=== PATIENT | female | born 1945 ===

== ENCOUNTER 2018-04-09 07:00 | Day surgery (SDC) | payer MEDICARE ==
[2018-04-09 07:41] VITALS: BMI 22.2
[2018-04-09] MEDS ORDERED: Propofol 10 mg/ml Inj (20 ML) ONE (08:29)
--- NOTE | 2018-04-09 08:30 | CP.SDSHP ---
Same Day Surgery H & P - Previous Medical/Surgical History Cardiac: Hypertension Misc: Other Comments: RA, SLE Previous Surgical History: cholecystectomy, appendectomy, hysterectomy - Allergies Allergies: Allergies aspirin Allergy (Intermediate, Verified 04/09/18 07:39) RASH Iodine and Iodide Containing Produc Allergy (Intermediate, Verified 04/09/18 07: 41) ITCHING SEVERE ABDOMINAL PAIN codeine Adverse Reaction (Severe, Verified 04/09/18 07:41) DIARRHEA SEVERE ABDOMINAL PAIN lactose Adverse Reaction (Severe, Verified 04/09/18 07:41) DIARRHEA SEVERE ABDOMINAL PAIN Penicillins Adverse Reaction (Severe, Verified 04/09/18 07:41) DIARRHEA SEVERE ABDOMINAL PAIN - Current Medications Current Medications: See reconciliation sheet - Physical Exam General Appearance: WD WN female in NAD Vital Signs: Vital Signs 04/09/18 07:58 Temperature 97 F L Pulse Rate 76 Respiratory 19 Rate Blood Pressure 148/88 O2 Sat by Pulse 99 Oximetry Mental Status: Alert & Oriented x3 Neuro: WNL Heart: WNL Lungs: WNL GI: WNL - {Optional Preform as Required} Abdomen: WNL - Impression Impression: Epigastric pain Pt. Evaluated Today:Candidate for Anesthesia & Procedure: Yes - Date & Time Date: 04/09/18 Time: 08:30 Short Stay Discharge - Short Stay Discharge Admitting Diagnosis/Reason for Visit: EPIGASTRIC PAIN Disposition: HOME/ ROUTINE Referrals: Jh Woodson Jr., MD [Primary Care Provider] -
[2018-04-09 10:20] VITALS: BP 146/79; PULSE 72; RESP 17; TEMP 97.1; O2SAT 99
== END 2018-04-09 10:00 | disposition home or self-care (01) ==
LOC: C.ENDO 07:00
PROVIDERS: ATTEND Internal Medicine Gastroenterology
DX: I10 Essential (primary) hypertension (principal); Z88.0 Allergy status to penicillin; Z90.49 Acquired absence of other specified parts of digestive tract; K29.50 Unspecified chronic gastritis without bleeding; K44.9 Diaphragmatic hernia without obstruction or gangrene
CPT/HCPCS: 43239; 88305; 88312; 88313; 88342; J2001; J2704

== ENCOUNTER 2018-06-15 21:06 | Emergency (ER) | payer MEDICARE ==
[2018-06-15 21:07] VITALS: BMI 22.2
[2018-06-15 21:26] VITALS: RESP 14; TEMP 98.1; O2SAT 100
[2018-06-15 21:42] LABS: BASO % 0.5 % (0.0-2.0); EOS # 0.1 K/uL (0.0-0.7); EOS % 2.4 % (0.0-4.0); LYMPH # 1.5 K/uL (1.0-4.3); LYMPH % 30.3 % (20.0-40.0); MEAN CORPUSCULAR HEMOGLOBIN 31.5 pg (27.0-31.0); MEAN CORPUSCULAR HGB CONC 33.9 g/dL (33.0-37.0); MEAN PLATELET VOLUME 9.3 fL (7.2-11.7); MONO # 0.5 K/uL (0.0-0.8); MONO % 10.7 % (0.0-10.0); NEUT # 2.9 K/uL (1.8-7.0); NEUT % 56.1 % (50.0-75.0); RBC 3.79 Mil/uL (3.80-5.20)
[2018-06-15 21:46] LABS: WHITE BLOOD COUNT 5.1 K/uL (4.8-10.8)
[2018-06-15 22:13] LABS: ALB/GLOB RATIO 1.5 (1.0-2.1); ALBUMIN 4.4 g/dL (3.5-5.0); ALT/SGPT 33 U/L (9-52); AST/SGOT 56 U/L (14-36); BLOOD UREA NITROGEN 17 mg/dL (7-17); CALCIUM 9.5 mg/dl (8.6-10.4); GFR NON-AFRICAN AMERICAN > 60
--- NOTE | 2018-06-15 22:39 | C.PDOC ---
History Of Present Illness 72 y/o F c PMHx HTN on 4 blood pressure medications p/w hypertension. Patient noticed blood pressure reading at home was higher than normal starting 2 nights ago at about 180s/70s. Patient was also having anxiety at that time. Currently, she continues to have high blood pressure but denies dyspnea, chest pain, urinary changes, or significant headache. Patient had some chest discomfort 2 days ago. Time Seen by Provider: 06/15/18 21:16 Chief Complaint (Nursing): High Blood Pressure Past Medical History Vital Signs: Last Vital Signs Temp 98.1 F 06/15/18 21:18 Pulse 75 06/15/18 21:18 Resp 14 06/15/18 21:18 BP 182/62 H 06/15/18 21: Pulse Ox 100 06/15/18 22:40 - Medical History PMH: Arthritis, Colonic Polyps (ADENOMATOUS), Gastritis, Gall Bladder Disease, HTN, Osteoporosis, Rheumatoid Arthritis Denies: Asthma, Bronchitis, COPD, Emphysema, Fractures, Chronic Kidney Disease, Seizures, Sleep Apnea, TIA Surgical History: Appendectomy, Cholecystectomy, Endoscopy - [facility] Procedures ENDOSC POLYPECTOMY OF LG INTEST (11/18/13) Family History: States: No Known Family Hx - Social History Hx Tobacco Use: No Hx Alcohol Use: No Hx Substance Use: No - Immunization History Hx Tetanus Toxoid Vaccination: Yes Hx Influenza Vaccination: Yes Hx Pneumococcal Vaccination: Yes Review Of Systems Except As Marked, All Systems Reviewed And Found Negative. Constitutional: Negative for: Fever Respiratory: Negative for: Shortness of Breath Physical Exam - Physical Exam Additional Physical Exam Comments: Gen: NAD Head: NC/AT Eyes: No scleral icterus ENT: MMM Neck: Supple Chest: No tenderness CV: Regular rate Lungs: CTA b/l Abd: Soft, NT Back: No CVA tenderness SKin: No rash Extremities: No edema Neuro: Alert, no focal deficit ED Course And Treatment - Laboratory Results Result Diagrams: 06/15/18 21:39 06/15/18 21:39 O2 Sat by Pulse Oximetry: 100 Medical Decision Making Medical Decision Making: EKG NSR 74 bpm, no ST/T wave changes. CXR no acute disease. Creatinine normal. Troponin negative (last complaint of chest discomfort 2 days ago). Discharged home, f/u Dr. Woodson, instructed to return to ED for headache, chest pain, dyspnea, or change in urine. Disposition - Disposition Referrals: Jh Woodson Jr., MD [Medical Doctor] - Disposition: HOME/ ROUTINE Disposition Time: 22:40 Condition: STABLE Instructions: High Blood Pressure Emergencies Forms: [facility] ([place]) - Clinical Impression Clinical Impression: Hypertension
[2018-06-15 23:00] VITALS: BP 158/65; PULSE 80
--- NOTE | 2018-06-16 13:50 | RAD ---
Date of service: 06/15/2018 HISTORY: chest complaint COMPARISON: Comparison chest 05/07/2016 FINDINGS: LUNGS: No active pulmonary disease. PLEURA: No significant pleural effusion identified, no pneumothorax apparent. CARDIOVASCULAR: Normal. OSSEOUS STRUCTURES: No significant abnormalities. VISUALIZED UPPER ABDOMEN: Normal. OTHER FINDINGS: None. IMPRESSION: No active disease.
--- NOTE | 2018-06-19 22:16 | CARD ---
APPROVED REPORT Date of service: 06/15/2018 EKG Measurement Heart [id number] [id number] <Conclusion> Normal sinus rhythm Normal ECG
== END 2018-06-15 23:00 | disposition home or self-care (01) ==
LOC: C.ER 21:06
DX: I10 Essential (primary) hypertension (principal)

== ENCOUNTER 2018-11-04 10:51 | Emergency (ER) | payer MEDICARE | END 2018-11-04 13:13 | disposition home or self-care (01) | LOC: C.ER 10:51 ==

== ENCOUNTER 2018-12-23 07:39 | Outpatient (CLI) | payer MEDICARE | END 2018-12-23 07:40 | disposition home or self-care (01) | LOC: C.LAB 07:39 | DX: K44.9 Diaphragmatic hernia without obstruction or gangrene (principal); K21.9 Gastro-esophageal reflux disease without esophagitis; K57.30 Diverticulosis of large intestine without perforation or abscess without bleeding; K58.9 Irritable bowel syndrome, unspecified; Z86.010 Personal history of colon polyps ==

== ENCOUNTER 2018-12-23 07:49 | Outpatient (CLI) | payer MEDICARE | END 2018-12-23 07:50 | disposition home or self-care (01) | LOC: C.LAB 07:49 | DX: M32.10 Systemic lupus erythematosus, organ or system involvement unspecified (principal) ==

== ENCOUNTER 2019-01-25 08:00 | Outpatient (CLI) | payer MEDICARE | END 2019-01-25 08:01 | disposition home or self-care (01) | LOC: C.CTH 08:00 ==

== ENCOUNTER 2019-02-10 08:52 | Outpatient (CLI) | payer MEDICARE | END 2019-02-10 08:53 | disposition home or self-care (01) | LOC: C.LAB 08:52 | DX: E55.9 Vitamin D deficiency, unspecified (principal) ==

== ENCOUNTER 2019-02-16 08:03 | Outpatient (CLI) | payer MEDICARE | END 2019-02-16 08:04 | disposition home or self-care (01) | LOC: C.LAB 08:03 | DX: K59.00 Constipation, unspecified (principal) ==

== ENCOUNTER 2019-02-18 08:18 | Day surgery (SDC) | payer MEDICARE ==
[2019-02-18] MEDS ORDERED: Absorbable Gelatin Sponge Size 12-7 ONE (10:02)
[2019-02-18] MEDS ORDERED: Midazolam 2 MG/2 ML VIAL ONE (10:06)
--- NOTE | 2019-02-18 10:37 | CP.SDSHP ---
Same Day Surgery H & P - History Proposed Procedure: US guided liver biopsy Pre-Op Diagnosis: abnormal LFTs - Allergies Allergies: Allergies aspirin Allergy (Intermediate, Verified 11/04/18 11:12) RASH Iodine and Iodide Containing Produc Allergy (Intermediate, Verified 11/04/18 11:12) ITCHING SEVERE ABDOMINAL PAIN codeine Adverse Reaction (Severe, Verified 11/04/18 11:12) DIARRHEA SEVERE ABDOMINAL PAIN lactose Adverse Reaction (Severe, Verified 11/04/18 11:12) DIARRHEA SEVERE ABDOMINAL PAIN Penicillins Adverse Reaction (Severe, Verified 11/04/18 11:12) DIARRHEA SEVERE ABDOMINAL PAIN - Physical Exam Mental Status: Alert & Oriented x3 - Impression Impression: Pt with possible sclerosing cholangitis refered for biopsy. Plan US guided liver biopsy Pt. Evaluated Today:Candidate for Anesthesia & Procedure: Yes (ASA 3 Malampati 2) - Date & Time Date: 02/18/19 Time: 10:00 Short Stay Discharge - Short Stay Discharge Admitting Diagnosis/Reason for Visit: DX:INTRAHEPATIC CHOLESTASIS SCLEROSING CHOLANGITIS Disposition: HOME/ ROUTINE Referrals: Jh Woodson Jr., MD [Primary Care Provider] -
[2019-02-18 10:38] VITALS: BMI 24.9
--- NOTE | 2019-02-18 10:38 | PCM.SURG1 ---
Surgeon's Initial Post Op Note - Surgeon's Notes Surgeon: Lance KESSLER MD Surface To Air Weapons Officer: NONE Type of Anesthesia: IV Sedation, Moderate Sedation{RN} Pre-Operative Diagnosis: Abnormal LFTs Operative Findings: US showed an unremarkable liver Post-Operative Diagnosis: Abnormal LFTs Operation Performed: US guided liver biopsy Specimen/Specimens Removed: 18 g core x 4 Estimated Blood Loss: EBL {In ML}: 1 Blood Products Given: N/A Drains Used: No Drains Post-Op Condition: Good Date of Surgery/Procedure: 02/18/19 Time of Surgery/Procedure: 10:30
[2019-02-18] MEDS ORDERED: Lidocaine Hydrochloride 5 ML INJ ONE (11:22)
--- NOTE | 2019-02-18 12:15 | US ---
PROCEDURE: Date of procedure: 02/18/2019 Procedure: 1. Ultrasound-guided core liver biopsy, CPT 47319 2. Ultrasound guidance for biopsy, [address] Medications: The patient is sedated by the anesthesiologist. HISTORY: Abnormal LFTs TECHNIQUE: Following informed consent and procedure time-out, the patient was placed supine on bed and limited ultrasound showed a normal appearing right hepatic lobe. After patient abdomen was prepped and draped in the usual sterile fashion and the skin was anesthetized with 2% lidocaine, an 18 gauge core needle was advanced percutaneously under direct ultrasound guidance into the right hepatic lobe. Upon confirmation of needle position, three 18 gauge core specimens were obtained and sent for routine pathology. The biopsy to tract was then embolized with Gelfoam. A post biopsy ultrasound showed no hematoma. A dressing was applied. IMPRESSION: Ultrasound-guided core biopsy right hepatic lobe. There were no immediate complications.
--- NOTE | 2019-02-18 15:15 | CT ---
Date of service: 02/18/2019 PROCEDURE: CT Chest, Abdomen and Pelvis without intravenous contrast HISTORY: Post Liver Biopsy c/o severe pain epigastric COMPARISON: None available. TECHNIQUE: Radiation dose: Total exam DLP = 549.33 mGy-cm. This CT exam was performed using one or more of the following dose reduction techniques: Automated exposure control, adjustment of the mA and/or kV according to patient size, and/or use of iterative reconstruction technique. FINDINGS: CT CHEST WITHOUT CONTRAST: LUNGS: Small of round and elliptical shaped foci of multiple small discrete lucencies within the lung parenchyma bilaterally in the upper and lower lobes which could represent small pneumatoceles or emphysematous changes. No evidence of pneumothorax or effusion... There are mild linear atelectatic and/or scarring changes seen in both lung bases left greater than right. Small right-sided Bochdalek hernia present.. MEDIASTINUM: . Normal caliber aorta and pulmonary arterial trunk. Normal size heart. Aortic calcified atherosclerotic plaque present. Trachea midline and patent with no large central endoluminal lesions. There appears to be some faint debris within the esophageal lumen. Small hiatal hernia with fluid level in the distal esophagus consistent with reflux. LYMPH NODES: No significant mediastinal adenopathy. Evaluation for hilar adenopathy somewhat limited due to the lack circulating intravenous contrast material. PLEURA: No effusion. No evidence of pneumothorax BONES: Mild multilevel degenerative spondylosis of the thoracic spine OTHER FINDINGS: None. CT ABDOMEN AND PELVIS: LIVER: There is a small elliptical shaped low-attenuation focus along the lateral aspect right lobe liver which may represent Gel-Foam along of biopsy tract. Few tiny bubbles of air are also seen anterior to the liver either in a subcapsular location or just outside of the capsule-intraperitoneal location. There is ill-defined though somewhat elliptical shaped area of lower attenuation inferior aspect right lobe liver that measures approximate 5.2 x 2.6 cm which is of uncertain etiology although ranges from 37 to low 50s Hounsfield units. This could represent a subacute hematoma; is there a history of anemia in this patient?.. Rule out infectious or ischemic process. Neoplasm would be unlikely likely process would be less likely small amount of central pneumobilia again seen related to prior cholecystectomy. GALLBLADDER AND BILE DUCTS: Cholecystectomy. PANCREAS: Pancreas appears slightly atrophic and fatty replaced. No evidence of obvious pancreatic mass collection or calcification. SPLEEN: Unremarkable. ADRENALS: No adrenal lesions. KIDNEYS AND URETERS: Kidneys demonstrate relatively symmetric nephrograms. No evidence of nephrolithiasis or hydronephrosis. Also again noted is a cyst left kidney unchanged. VASCULATURE: No aortic atherosclerotic calcification or mural plaque present. Unremarkable. No aortic aneurysm. BOWEL: Evaluation of the bowel is somewhat limited due to the lack of oral contrast material. Stomach is incompletely distended with thick-walled appearance rule out gastritis however other intrinsic/invasive wall lesion including but not limited to gastric carcinoma not excluded. Visualized loops of small bowel exhibit normal contour and caliber. No evidence of acute mechanical bowel obstruction. Stool and air seen throughout the large bowel particularly on the right consistent with mild fecal retention/constipation. Scattered colonic diverticula again seen along the sigmoid colon.. Note that there is hyperdense inspissated of fecal material within the distal aspect of the descending colon and sigmoid. APPENDIX: Normal appendix. PERITONEUM: Unremarkable. No free fluid. No free air. LYMPH NODES: Unremarkable. No enlarged lymph nodes. BLADDER: Urinary bladder incompletely distended with slight thick-walled appearance. Rule out cystitis. REPRODUCTIVE: Hysterectomy. BONES: Mild multilevel degenerative spondylosis of the thoracic and lumbar spine OTHER FINDINGS: Calcified atherosclerotic plaque abdominal aorta. IMPRESSION: There is a small elliptical shaped low-attenuation focus along the lateral aspect right lobe liver which may represent Gel-Foam along of biopsy tract. Few tiny bubbles of air are also seen anterior to the liver either in a subcapsular location or just outside of the capsule-intraperitoneal location. There is ill-defined though somewhat elliptical shaped area of lower attenuation inferior aspect right lobe liver that measures approximate 5.2 x 2.6 cm which is of uncertain etiology although ranges from 37 to low 50s Hounsfield units. This could represent a subacute hematoma; is there a history of anemia in this patient?.. Rule out infectious or ischemic process. Neoplasm would be unlikely likely process would be less likely small amount of central pneumobilia again seen related to prior cholecystectomy. Wall thickening of the stomach in part due to incomplete distention however gastritis or other intrinsic/invasive wall lesion including but not limited to gastric carcinoma not excluded Diverticulosis without radiographic evidence of acute diverticulitis. Left renal low-attenuation lesion cyst again noted Scattered lung parenchymal lucencies possibly representing small pneumatoceles or emphysematous changes Consider repeat CT scan at short interval to assess stability.
--- NOTE | 2019-02-21 03:38 | CARD ---
APPROVED REPORT Date of service: 02/18/2019 EKG Measurement Heart [id number] <Conclusion> Normal sinus rhythm Nonspecific T wave abnormality Abnormal ECG
== END 2019-02-18 15:15 | disposition home or self-care (01) ==
LOC: C.SPRAD 08:18
PROVIDERS: ATTEND Internal Medicine Gastroenterology
DX: K74.3 Primary biliary cirrhosis (principal)
CPT/HCPCS: 47000; 72HRC

== ENCOUNTER 2019-02-18 15:20 | Inpatient (IN) | payer MEDICARE ==
[2019-02-18 15:38] VITALS: BMI 19.2
--- NOTE | 2019-02-18 16:01 | C.PDOC ---
Time Seen by Provider: 02/18/19 15:52 Chief Complaint (Nursing): Abdominal Pain Past Medical History Vital Signs: Last Vital Signs Temp 98.1 F 02/18/19 15:25 Pulse 78 02/18/19 15:25 Resp 20 02/18/19 15:25 BP 117/35 L 02/18/19 15:25 Pulse Ox 100 02/18/19 15:25 Primary Care Provider: Jh Woodson Jr. - Medical History PMH: Colonic Polyps (ADENOMATOUS), Gastritis, Gall Bladder Disease, HTN, Osteoporosis, Pneumonia (MANY YEARS AGO), Rheumatoid Arthritis Denies: Chronic Kidney Disease Surgical History: Appendectomy, Cholecystectomy, Endoscopy - [facility] Procedures ENDOSC POLYPECTOMY OF LG INTEST (11/18/13) - Social History Hx Tobacco Use: No Hx Alcohol Use: No Hx Substance Use: No - Immunization History Hx Tetanus Toxoid Vaccination: Yes Hx Influenza Vaccination: Yes Hx Pneumococcal Vaccination: Yes ED Course And Treatment O2 Sat by Pulse Oximetry: 100 Disposition - Disposition
--- NOTE | 2019-02-18 16:24 | C.PDOC ---
History Of Present Illness 73 y/o female, with history of lupus, is sent by Dr. Olmos (GI) for liver biopsy done by Dr. Nichols. Patient complained of epigastric pain afterwards and was given protonix and tylenol. Patient was still in pain and had a dry CT scan done and was sent to ER for further evaluation. Patient denies nausea, vomiting, diarrhea, fever, chills, or other complaints. <Cris Pepper - Last Filed: 02/18/19 19:15> History Per: Patient History/Exam Limitations: no limitations Onset/Duration Of Symptoms: Days Current Symptoms Are (Timing): Still Present <Cris Pepper - Last Filed: 02/18/19 19:15> <Gladys Guo - Last Filed: 02/19/19 00:11> Time Seen by Provider: 02/18/19 15:52 Chief Complaint (Nursing): Abdominal Pain Past Medical History Reviewed: Historical Data, Nursing Documentation, Vital Signs Vital Signs: Last Vital Signs Temp 98.1 F 02/18/19 15:25 Pulse 78 02/18/19 15:25 Resp 20 02/18/19 15:25 BP 117/35 L 02/18/19 15:25 Pulse Ox 100 02/18/19 16:01 Primary Care Provider: Jh Woodson Jr. - Medical History PMH: Colonic Polyps (ADENOMATOUS), Gastritis, Gall Bladder Disease, HTN, Osteoporosis, Pneumonia (MANY YEARS AGO), Rheumatoid Arthritis Denies: Chronic Kidney Disease Surgical History: Appendectomy, Cholecystectomy, Endoscopy - [facility] Procedures ENDOSC POLYPECTOMY OF LG INTEST (11/18/13) Family History: States: No Known Family Hx - Social History Hx Tobacco Use: No Hx Alcohol Use: No Hx Substance Use: No - Immunization History Hx Tetanus Toxoid Vaccination: Yes Hx Influenza Vaccination: Yes Hx Pneumococcal Vaccination: Yes <Cris Pepper - Last Filed: 02/18/19 19:15> Vital Signs: Last Vital Signs Temp 98.1 F 02/18/19 15:25 Pulse 88 02/18/19 22:27 Resp 18 02/18/19 22:27 BP 156/60 H 02/18/19 22:27 Pulse Ox 99 02/18/19 22:27 - [facility] Procedures ENDOSC POLYPECTOMY OF LG INTEST (11/18/13) <Gladys Guo - Last Filed: 02/19/19 00:11> Review Of Systems Constitutional: Negative for: Fever, Chills Cardiovascular: Negative for: Chest Pain Respiratory: Negative for: Shortness of Breath Gastrointestinal: Positive for: Abdominal Pain (epigastric). Negative for: Nausea, Vomiting, Diarrhea Genitourinary: Negative for: Dysuria, Hematuria <Cris Pepper - Last Filed: 02/18/19 19:15> Physical Exam - Physical Exam Appears: Non-toxic, No Acute Distress Skin: Warm, Dry Head: Normacephalic Eye(s): bilateral: PERRL Oral Mucosa: Moist Neck: Supple Chest: No Tenderness Cardiovascular: Rhythm Regular, No Murmur Respiratory: No Rales, No Rhonchi, No Wheezing, Other (clear to auscultation bilaterally) Gastrointestinal/Abdominal: Bowel Sounds (normoactive), Soft, Tenderness (to epigastric, right flank, suprapubic, and RUQ RLQ ), No Guarding, No Rebound Extremity: Bilateral: Normal Color And Temperature Neurological/Psych: Oriented x3, Normal Speech, Normal Cognition <Cris Pepper - Last Filed: 02/18/19 19:15> ED Course And Treatment - Laboratory Results Result Diagrams: 02/18/19 16:41 02/18/19 16:41 ECG: Interpreted By Me, Viewed By Me ECG Rhythm: Sinus Rhythm Interpretation Of ECG: Nonspecific T wave abnormality. Sinus rhythm with short OR. Rate From EC O2 Sat by Pulse Oximetry: 100 (RA) Pulse Ox Interpretation: Normal <Cris Pepper - Last Filed: 02/18/19 19:15> - Laboratory Results Result Diagrams: 02/18/19 22:55 02/18/19 16:41 Lab Results: PT 11.6 SECONDS (9.7-12.2) 02/18/19 16:41 INR 1.1 02/18/19 16:41 APTT 30.0 SECONDS (21-34) D 02/18/19 16:41 Troponin I 0.0370 ng/mL (0.00-0.120) 02/18/19 16:41 Total Bilirubin 0.6 mg/dL (0.2-1.3) 02/18/19 16:41 AST 191 U/L (14-36) H D 02/18/19 16:41 ALT 124 U/L (9-52) H D 02/18/19 16:41 Alkaline Phosphatase 327 U/L (38-126) H 02/18/19 16:41 Total Protein 6.4 g/dL (6.3-8.3) 02/18/19 16:41 Albumin 3.7 g/dL (3.5-5.0) 02/18/19 16:41 Globulin 2.7 gm/dL (2.2-3.9) 02/18/19 16:41 Albumin/Globulin Ratio 1.4 (1.0-2.1) 02/18/19 16:41 Lipase 70 U/L (23-300) 02/18/19 16:41 Pulse Ox Interpretation: Normal Progress Note: 11:10pm spoke with dr nichols. awaiting ct angio. hb decrease to 9.7. Vitals stabl11:30pm as per dr nichols, no active bleeding at present. Ok with transfusion, blood and ffp. Continuing to follow. Seen by dr pitts - icu - as per dr pitts - pt stable to go to telemetry <Gladys Guo - Last Filed: 02/19/19 00:11> Critical Care Time - Critical Care Note Total Time (in mins): 30 Documented critical care: time excludes all time spent performing seperately billable procedures. <Gladys Guo - Last Filed: 02/19/19 00:11> Medical Decision Making Medical Decision Makin pt from ir procedure s/p liver biopsy with pain. ? hematoma in liver on dry ct scan. discussed with ophthalmic surgical assistant and also with Dr Nichols; requests solumedrol now in case hemoglobin drops; pt would need repeat ct scan with iv contrast, needs premeditation for allergy to iv contrast. called to bedside by MEHRAN De Los Santos, pt had near syncopal episode after using commode. ekg. labs, orthostatics and iv fluids ordered. discussed with Dr Gonzalez and Dr Nichols. will get four hour premeditation prptocol for cta abdomen to eval liver; hgb dropped a bit, left increased. 1915 s/o Dr Guo benadryl, solumedrol an ct scan at 830 pt not given morpine for pain; reports abdominal pain as effect of codeine. <Cris Pepper - Last Filed: 02/18/19 19:15> Disposition - Disposition Disposition Time: 19:18 <Cris Pepper - Last Filed: 02/18/19 19:15> Discussed With DrBakari: Jh Woodson Jr. Comment: accepted the pt on his service and took over the care at 12:09AM Doctor Will See Patient In The: ED Counseled Patient/Family Regarding: Studies Performed, Diagnosis - POA Present On Arrival: Poor Glycemic Control <Gladys Guo - Last Filed: 02/19/19 00:11> - Disposition Disposition: HOSPITALIZED Condition: CRITICAL Forms: [employer] ([place]) - Clinical Impression Clinical Impression: Abdominal pain, History of liver biopsy, Liver hemorrhage - PA / CUSTOMER MARKETING MANAGER / Resident Statement MD/DO has reviewed & agrees with the documentation as recorded. - Scribe Statement The provider has reviewed the documentation as recorded by the Scribe Mary Hardy All medical record entries made by the Scribe were at my direction and personally dictated by me. I have reviewed the chart and agree that the record accurately reflects my personal performance of the history, physical exam, medical decision making, and the department course for this patient. I have also personally directed, reviewed, and agree with the discharge instructions and disposition. <Cris Pepper - Last Filed: 02/18/19 19:15> Physician Patient Turnover Patient Signed Over To: Gladys Guo Handoff Comments: s/o to medication at [address] scan and dispo accordingly <Cris Pepper - Last Filed: 02/18/19 19:15> Decision To Admit <Cris Pepper - Last Filed: 02/18/19 19:15> - Pt Status Changed To: Hospital Disposition Of: Inpatient - Admit Certification Admit to Inpatient:: After my assessment, the patient will require hospitalization for at least two midnights. This is because of the severity of symptoms shown, intensity of services needed, and/or the medical risk in this patient being treated as an outpatient. - InPatient: Physician Admission Certification:: After my assessment, the patient will require hospitalization for at least two midnights. This is because of the severity of symptoms shown, intensity of services needed, and/or the medical risk in this patient being treated as an outpatient. - . Bed Request Type: Telemetry Admitting Physician: Jh Woodson Jr. <Gladys Guo - Last Filed: 02/19/19 00:11> - . Patient Diagnosis: Abdominal pain, History of liver biopsy, Liver hemorrhage
[2019-02-18] MEDS ORDERED: MethylPREDNISolone 40 mg Vial IVP STA (16:26)
[2019-02-18] MEDS ORDERED: Sodium Chloride 0.9% 1,000 ML IV ONE ×2 (16:34→22:31)
--- NOTE | 2019-02-18 16:46 | CP.PCM.CON ---
History of Present Illness - History of Present Illness History of Present Illness: General Surgery Consult for Dr. Hines Reason for consult: suspected liver hematoma s/p biopsy 73 y/o female with history of SLE was referred by Dr. Olmos (GI) for liver biopsy with Dr. Nichols to assess for PSC. Patient had liver biopsy done earlier today. After procedue, patient developed abd pain. She was given protonix and t ylenol. Patient was still in pain so CT abd/pelvis withou contrast done which showed suspected subcapsular hematoma in liver (see full report. Patient was sent to ER for further evaluation and suregry was consulted. Patient experienced of dizziness/lightheadedness and near-syncopal episode when she to stand to use restroom. IR, Dr. nichols was made aware of findings and he ordered repeat CT with IV contrast. PMD: Jh Woodson Jr. PMH: Colonic Polyps (ADENOMATOUS), Gastritis, HTN, Osteoporosis, Rheumatoid Arthritis, SLE PSH: Appendectomy, Cholecystectomy, Endoscopy, colonoscopy, hernia repair, hysterectomy, ALL: ASA, Iodine, Constrast, codeine, lactose, PCN Review of Systems - Review of Systems All systems: reviewed and no additional remarkable complaints except (as per HPI) Past Patient History - Infectious Disease Hx of Infectious Diseases: None - Past Medical History & Family History Past Medical History?: Yes - Past Social History Smoking Status: Never Smoked - CARDIAC Hx Hypertension: Yes - PULMONARY Hx Pneumonia: Yes (MANY YEARS AGO) - HEENT Hx HEENT Problems: No - RENAL Hx Chronic Kidney Disease: No - ENDOCRINE/METABOLIC Hx Endocrine Disorders: Yes Hx Systemic Lupus Erythematosus: Yes - HEMATOLOGICAL/ONCOLOGICAL Hx Blood Disorders: Yes Hx Shingles: Yes - INTEGUMENTARY Hx Dermatological Problems: No - MUSCULOSKELETAL/RHEUMATOLOGICAL Hx Osteoporosis: Yes Hx Rheumatoid Arthritis: Yes - GASTROINTESTINAL Hx Gall Bladder Disease: Yes Hx Gastritis: Yes - GENITOURINARY/GYNECOLOGICAL Hx Genitourinary Disorders: No - PSYCHIATRIC Hx Substance Use: No - SURGICAL HISTORY Hx Appendectomy: Yes Hx Cholecystectomy: Yes - ANESTHESIA Hx Anesthesia: Yes Hx Anesthesia Reactions: No Hx Malignant Hyperthermia: No Meds Allergies/Adverse Reactions: Allergies Allergy/AdvReac Type Severity Reaction Status Date / Time aspirin Allergy Intermediate RASH Verified 02/18/19 15:37 Iodine and Iodide Containing Allergy Intermediate ITCHING Verified 02/18/19 15:37 Produc codeine AdvReac Severe DIARRHEA Verified 02/18/19 15:37 lactose AdvReac Severe DIARRHEA Verified 02/18/19 15:37 Penicillins AdvReac Severe DIARRHEA Verified 02/18/19 15:37 - Medications Medications: Current Medications Sodium Chloride (Sodium Chloride 0.9%) 1,000 mls @ 500 mls/hr IV .Q2H ONE Stop: 02/18/19 18:33 Physical Exam - Constitutional Appears: No Acute Distress - Head Exam Head Exam: ATRAUMATIC, NORMOCEPHALIC - Eye Exam Eye Exam: EOMI, Normal appearance Pupil Exam: PERRL - ENT Exam ENT Exam: Mucous Membranes Moist - Respiratory Exam Respiratory Exam: NORMAL BREATHING PATTERN - Cardiovascular Exam Cardiovascular Exam: REGULAR RHYTHM - GI/Abdominal Exam GI & Abdominal Exam: Normal Bowel Sounds, Soft, Tenderness (Right sided). absent: Distended, Firm, Guarding, Hernia, Rebound, Rigid - Extremities Exam Extremities exam: Positive for: normal capillary refill, pedal pulses present - Back Exam Back exam: absent: CVA tenderness (L), CVA tenderness (R) - Neurological Exam Neurological exam: Alert, CN II-XII Intact, Oriented x3 - Psychiatric Exam Psychiatric exam: Normal Affect, Normal Mood - Skin Skin Exam: Dry, Intact, Normal Color, Warm Results - Vital Signs Recent Vital Signs: Last Vital Signs Temp 98.1 F 02/18/19 15:25 Pulse 78 02/18/19 15:25 Resp 20 02/18/19 15:25 BP 117/35 L 02/18/19 15:25 Pulse Ox 100 02/18/19 16:30 - Labs Result Diagrams: 02/18/19 16:41 02/18/19 16:41 Assessment & Plan - Assessment and Plan (Free Text) Assessment: 73F who presents with abd pain and suspected subcapsular liver hematoma s/p liver biopsy Plan: -NPO -Repeat CT with IV contrast -Trend H/H, transfuse as needed -f/u IR recommendations, if bleeding will need embolization -medical management as per primary -Discussed with Dr. Butch Nelson PGY2 - Date & Time Date: 02/18/19 Time: 17:21
[2019-02-18 16:47] LABS: BASO % 0.3 % (0.0-2.0); EOS # 0.1 K/uL (0.0-0.7); EOS % 0.9 % (0.0-4.0); HEMOGLOBIN 10.5 g/dL (11.0-16.0); LYMPH # 0.5 K/uL (1.0-4.3); LYMPH % 8.3 % (20.0-40.0); MEAN CELL VOLUME 93.2 fL (81.0-99.0); MEAN CORPUSCULAR HEMOGLOBIN 30.8 pg (27.0-31.0); MEAN CORPUSCULAR HGB CONC 33.1 g/dL (33.0-37.0); MEAN PLATELET VOLUME 11.7 fL (7.2-11.7); MONO # 0.3 K/uL (0.0-0.8); MONO % 4.9 % (0.0-10.0); NEUT # 5.1 K/uL (1.8-7.0); NEUT % 85.6 % (50.0-75.0); NRBC % 0.1 % (0.0-2.0); PLATELET COUNT 133 K/uL (130-400); RBC 3.41 Mil/uL (3.80-5.20); RED CELL DISTRIBUTION WIDTH 15.5 % (11.5-14.5)
[2019-02-18 16:55] LABS: INR 1.1; PROTHROMBIN TIME 11.6 SECONDS (9.7-12.2)
[2019-02-18] MEDS ORDERED: Sodium Chloride 0.9% 1,000 ML ONE (17:03)
[2019-02-18] MEDS ORDERED: DiphenhydrAMINE 50 mg/ml Inj IVP STA (17:13)
[2019-02-18 17:14] LABS: ALB/GLOB RATIO 1.4 (1.0-2.1); ALBUMIN 3.7 g/dL (3.5-5.0); ALT/SGPT 124 U/L (9-52); AST/SGOT 191 U/L (14-36); BLOOD UREA NITROGEN 15 mg/dL (7-17); CALCIUM 8.4 mg/dl (8.6-10.4); GFR NON-AFRICAN AMERICAN > 60; LIPASE 70 U/L (23-300)
[2019-02-18 18:10] LABS: PLATELET ESTIMATE NORMAL (NORMAL)
[2019-02-18 18:12] LABS: BANDS 2 % (0-2); LYMPHOCYTE 9 % (20-40); MONOCYTE 5 % (0-10); NEUTROPHIL 84 % (50-75); TOTAL CELLS COUNTED 100
[2019-02-18 18:13] LABS: ANISOCYTOSIS SLIGHT; HYPERSEGMENTATION PRESENT; LARGE PLATELETS PRESENT; MICROCYTOSIS SLIGHT; POIKILOCYTOSIS SLIGHT; POLYCHROMIC SLIGHT; SMUDGE CELLS PRESENT; SPHEROCYTES SLIGHT
[2019-02-18] MEDS ORDERED: Iodixanol 320 mg/ml 150 ml Bottle IV ONE (20:59)
[2019-02-18] MEDS ORDERED: DiphenhydrAMINE 50 mg/ml Inj ONE (21:07)
[2019-02-18] MEDS ORDERED: DiphenhydrAMINE 50 mg/ml Inj IVP ONE (21:10)
[2019-02-18] MEDS ORDERED: MethylPREDNISolone 40 mg Vial IVP ONE (21:10)
[2019-02-18] MEDS ORDERED: Iodixanol 320 MG/ML 200 ML BOTTLE IV ONE (22:52)
[2019-02-18 23:11] LABS: HEMOGLOBIN 9.7 g/dL (11.0-16.0)
--- NOTE | 2019-02-19 00:27 | CP.PCM.HP ---
History of Present Illness - History of Present Illness History of Present Illness: Patient is a 73 year old female with pmhx of SLE, RA, Reynaud's, HTN, GERD who presents to ED s/p liver bx today with severe abdominal pain. Patient was sent by GI, Dr. Ruiz for US guided liver bx with Dr. Nichols for evaluation of t ransaminitis and suspected sclerosing cholangitis. Patient subsequently developed severe intermittent abdominal pain to RUQ/RLQ, and was sent down to ED for evaluation. CT revealed moderately large hemorrhage in right liver, perihepatic and right pericolic gutter regions. Hgb dropped to 9.7 from 11.6 2 days ago. Patient reports she feels very cold. Denies dizziness, chest pain, palpitations, SOB, nausea. PMD: Dr. Woodson PMHx: SLE, RA, Reynaud's, HTN, GERD PSHx: appendectomy, cholecystectomy, c-sect x2, hysterectomy Meds: methotrexate, plaquenil, metoprolol, HCTZ, nexium Allergies: ASA, iodine, codeine, PCN, lactose SocHx: former smoker, denies alcohol/tobacco use Present on Admission - Present on Admission Any Indicators Present on Admission: No Review of Systems - Constitutional Constitutional: Chills - EENT Eyes: Change in Vision. absent: Blurred Vision - Cardiovascular Cardiovascular: absent: Chest Pain, Dyspnea on Exertion, Lightheadedness, Palpitations, Syncope - Respiratory Respiratory: absent: Cough - Gastrointestinal Gastrointestinal: Abdominal Pain, Constipation. absent: Nausea, Vomiting - Genitourinary Genitourinary: absent: Dysuria - Menstruation Menstruation: S/P Hysterectomy - Neurological Neurological: absent: Dizziness, Syncope Past Patient History - Infectious Disease Hx of Infectious Diseases: None - Past Medical History & Family History Past Medical History?: Yes - Past Social History Smoking Status: Never Smoked - CARDIAC Hx Hypertension: Yes - PULMONARY Hx Pneumonia: Yes (MANY YEARS AGO) - HEENT Hx HEENT Problems: No - RENAL Hx Chronic Kidney Disease: No - ENDOCRINE/METABOLIC Hx Endocrine Disorders: Yes Hx Systemic Lupus Erythematosus: Yes - HEMATOLOGICAL/ONCOLOGICAL Hx Blood Disorders: Yes Hx Shingles: Yes - INTEGUMENTARY Hx Dermatological Problems: No - MUSCULOSKELETAL/RHEUMATOLOGICAL Hx Osteoporosis: Yes Hx Rheumatoid Arthritis: Yes - GASTROINTESTINAL Hx Gall Bladder Disease: Yes Hx Gastritis: Yes - GENITOURINARY/GYNECOLOGICAL Hx Genitourinary Disorders: No - PSYCHIATRIC Hx Substance Use: No - SURGICAL HISTORY Hx Appendectomy: Yes Hx Cholecystectomy: Yes - ANESTHESIA Hx Anesthesia: Yes Hx Anesthesia Reactions: No Hx Malignant Hyperthermia: No Meds Allergies/Adverse Reactions: Allergies Allergy/AdvReac Type Severity Reaction Status Date / Time aspirin Allergy Intermediate RASH Verified 02/18/19 15:37 Iodine and Iodide Containing Allergy Intermediate ITCHING Verified 02/18/19 15:37 Produc codeine AdvReac Severe DIARRHEA Verified 02/18/19 15:37 lactose AdvReac Severe DIARRHEA Verified 02/18/19 15:37 Penicillins AdvReac Severe DIARRHEA Verified 02/18/19 15:37 Physical Exam - Constitutional Appears: Non-toxic, No Acute Distress - Head Exam Head Exam: ATRAUMATIC, NORMAL INSPECTION, NORMOCEPHALIC - Eye Exam Eye Exam: EOMI, Normal appearance Pupil Exam: NORMAL ACCOMODATION, PERRL - ENT Exam ENT Exam: Mucous Membranes Moist, Normal Exam - Neck Exam Neck exam: Positive for: Normal Inspection - Respiratory Exam Respiratory Exam: Clear to Auscultation Bilateral, NORMAL BREATHING PATTERN - Cardiovascular Exam Cardiovascular Exam: REGULAR RHYTHM, +S1, +S2. absent: Tachycardia - GI/Abdominal Exam GI & Abdominal Exam: Normal Bowel Sounds, Soft, Tenderness (RUQ/RLQ). absent: Distended - Extremities Exam Extremities exam: Positive for: normal inspection. Negative for: calf tenderness, pedal edema - Back Exam Back exam: NORMAL INSPECTION - Neurological Exam Neurological exam: Alert, Oriented x3 - Psychiatric Exam Psychiatric exam: Normal Affect, Normal Mood - Skin Skin Exam: Dry, Intact, Pallor, Warm Additional comments: no ecchymosis Results - Vital Signs Recent Vital Signs: Last Vital Signs Temp 98.1 F 02/18/19 15:25 Pulse 88 02/18/19 22:27 Resp 18 02/18/19 22:27 BP 156/60 H 02/18/19 22:27 Pulse Ox 99 02/18/19 22:27 - Labs Result Diagrams: 02/18/19 22:55 02/18/19 16:41 Labs: Laboratory Results - last 24 hr 02/18/19 02/18/19 02/18/19 16:41 16:41 16:41 WBC 6.0 D RBC 3.41 L Hgb 10.5 L Hct 31.8 L MCV 93.2 MCH 30.8 MCHC 33.1 RDW 15.5 H Plt Count 133 MPV 11.7 Neut % (Auto) 85.6 H Lymph % (Auto) 8.3 L [place] % (Auto) 4.9 Eos % (Auto) 0.9 Baso % (Auto) 0.3 Neut # (Auto) 5.1 Lymph # (Auto) 0.5 L [place] # (Auto) 0.3 Eos # (Auto) 0.1 Baso # (Auto) 0.0 Neutrophils % (Manual) 84 H Band Neutrophils % 2 Lymphocytes % (Manual) 9 L Monocytes % (Manual) 5 Hypersegmented Polys Present Smudge Cells Present Platelet Estimate Normal Large Platelets Present Polychromasia Slight Poikilocytosis (manual Slight Anisocytosis (manual) Slight Microcytosis (manual) Slight Spherocytes Slight PT 11.6 INR 1.1 APTT 30.0 D Sodium 136 Potassium 4.1 Chloride 106 Carbon Dioxide 20 L Anion Gap 14 BUN 15 Creatinine 0.7 Est GFR ( Amer) > 60 Est GFR (Non-Af Amer) > 60 POC Glucose (mg/dL) Random Glucose 96 Calcium 8.4 L Total Bilirubin 0.6 AST 191 H D ALT 124 H D Alkaline Phosphatase 327 H Troponin I 0.0370 Total Protein 6.4 Albumin 3.7 Globulin 2.7 Albumin/Globulin Ratio 1.4 Lipase 70 Blood Type Antibody Screen 02/18/19 02/18/19 02/18/19 16:41 16:54 22:55 WBC RBC Hgb 9.7 L Hct 29.1 L MCV MCH MCHC RDW Plt Count MPV Neut % (Auto) Lymph % (Auto) [place] % (Auto) Eos % (Auto) Baso % (Auto) Neut # (Auto) Lymph # (Auto) [place] # (Auto) Eos # (Auto) Baso # (Auto) Neutrophils % (Manual) Band Neutrophils % Lymphocytes % (Manual) Monocytes % (Manual) Hypersegmented Polys Smudge Cells Platelet Estimate Large Platelets Polychromasia Poikilocytosis (manual Anisocytosis (manual) Microcytosis (manual) Spherocytes PT INR APTT Sodium Potassium Chloride Carbon Dioxide Anion Gap BUN Creatinine Est GFR ( Amer) Est GFR (Non-Af Amer) POC Glucose (mg/dL) 112 H Random Glucose Calcium Total Bilirubin AST ALT Alkaline Phosphatase Troponin I Total Protein Albumin Globulin Albumin/Globulin Ratio Lipase Blood Type O POSITIVE Antibody Screen Negative Assessment & Plan - Assessment and Plan (Free Text) Assessment: 73 year old female with pmhx of SLE, Raynaud's, RA, HTN admitted for hepatic hemorrhage s/p US guided liver bx today Plan: Hepatic hemorrhage Imaging: CT: Moderately large hemorrhage in the right liver, perihepatic region, and right pericolic gutter. Few gas bubbles seen near the liver margin compatible with the recent biopsy. Again seen is biliary air, little change from prior study. -monitor on telemetry -hgb down 11.6-->9.7 -to be transfused 1U PRBC and 6 FFP -serial CBC q6h -IVF, NS @50 -keep NPO pending stabilization of hemorrhage -IR consult, Dr. Nichols; plan for embolization if still actively hemorrhaging -Vasc Sx consult, Dr. Hines HTN -hold home meds 2/2 hemorrhage, BP currently stable SLE/RA/Raynaud's -hold home meds Ppx GI: Pepcid VTE: SCDs, AC contraindicated 2/2 hemorrhage Discussed w/ Dr. Kandice Shi, PGY-1
[2019-02-19] MEDS ORDERED: Sodium Chloride 0.9% 1,000 ML IV SCH (00:45)
[2019-02-19] MEDS ORDERED: Sodium Chloride 0.9% 1,000 ML ONE (01:46)
[2019-02-19] MEDS: Sodium Chloride 0.9% 1,000 ML IV SCH ×2 (01:50→07:55)
[2019-02-19 07:52] VITALS: RESP 18
[2019-02-19 08:36] LABS: HEMOGLOBIN 10.5 g/dL (11.0-16.0); LYMPH # 0.5 K/uL (1.0-4.3); LYMPH % 9.8 % (20.0-40.0); MEAN CELL VOLUME 91.6 fL (81.0-99.0); MEAN CORPUSCULAR HEMOGLOBIN 31.2 pg (27.0-31.0); MEAN PLATELET VOLUME 10.3 fL (7.2-11.7); MONO # 0.1 K/uL (0.0-0.8); MONO % 2.5 % (0.0-10.0); NEUT # 4.2 K/uL (1.8-7.0); NEUT % 87.7 % (50.0-75.0); NRBC % 0.1 % (0.0-2.0); PLATELET COUNT 115 K/uL (130-400); RBC 3.36 Mil/uL (3.80-5.20); RED CELL DISTRIBUTION WIDTH 15.9 % (11.5-14.5); WHITE BLOOD COUNT 4.8 K/uL (4.8-10.8)
[2019-02-19 08:52] LABS: ALB/GLOB RATIO 1.3 (1.0-2.1); ALBUMIN 3.7 g/dL (3.5-5.0); ALT/SGPT 315 U/L (9-52); AST/SGOT 431 U/L (14-36); BLOOD UREA NITROGEN 14 mg/dL (7-17); GFR NON-AFRICAN AMERICAN > 60
--- NOTE | 2019-02-19 09:28 | CP.PCM.PN ---
Subjective - Date & Time of Evaluation Date of Evaluation: 02/19/19 Time of Evaluation: 07:00 - Subjective Subjective: Progress note for Dr. Woodson. Pt seen and examined at bedside. Overnight pt reports upper abdominal pain (worse on the R) awakening her at 4:00. However, has since improved. Patient reports chills and headache. Denies dizziness, near syncope, fevers, nausea, vomiting, chest pain, or shortness of breath. Objective - Vital Signs/Intake and Output Vital Signs (last 24 hours): Temp Pulse Resp BP Pulse Ox 97.9 F 99 H 18 162/73 H 100 02/19/19 07:25 02/19/19 07:25 02/19/19 07:25 02/19/19 07:25 02/19/19 07:25 Intake and Output: 02/19/19 02/19/19 06:59 18:59 Intake Total 550 Output Total 400 Balance 150 - Medications Medications: Current Medications Famotidine (Pepcid) 20 mg IVP DAILY ADDY Sodium Chloride (Sodium Chloride 0.9%) 1,000 mls @ 50 mls/hr IV .Q20H ADDY Last Admin: 02/19/19 07:55 Dose: 50 mls/hr - Labs Labs: 02/19/19 08:10 02/19/19 08:10 PT 11.6 SECONDS (9.7-12.2) 02/18/19 16:41 INR 1.1 02/18/19 16:41 APTT 30.0 SECONDS (21-34) D 02/18/19 16:41 - Constitutional Appears: No Acute Distress - Head Exam Head Exam: ATRAUMATIC, NORMOCEPHALIC - Eye Exam Eye Exam: EOMI, Normal appearance Additional comments: mild conjunctival pallor. - ENT Exam ENT Exam: Mucous Membranes Moist - Neck Exam Neck Exam: Full ROM, Normal Inspection - Respiratory Exam Respiratory Exam: Clear to Ausculation Bilateral, NORMAL BREATHING PATTERN. absent: Rales, Rhonchi, Wheezes - Cardiovascular Exam Cardiovascular Exam: REGULAR RHYTHM, +S1, +S2 - GI/Abdominal Exam GI & Abdominal Exam: Soft, Tenderness (diffuse), Normal Bowel Sounds. absent: Distended, Firm, Guarding, Rigid, Hernia, Mass, Rebound - Extremities Exam Extremities Exam: Full ROM, Normal Inspection. absent: Calf Tenderness, Pedal Edema, Tenderness - Neurological Exam Neurological Exam: Alert, Awake, CN II-XII Intact (grossly), Oriented x3 Additional comments: Moves all extremities. - Psychiatric Exam Psychiatric exam: Normal Affect, Normal Mood - Skin Skin Exam: Dry, Pallor (slight), Warm Additional comments: capillary refill 3 seconds. Assessment and Plan - Assessment and Plan (Free Text) Plan: 73 year old female with pmhx of SLE, Raynaud's, RA, HTN admitted for hepatic hemorrhage s/p US guided liver bx today Hepatic hemorrhage Imaging: CT: Moderately large hemorrhage in the right liver, perihepatic region, and right pericolic gutter. Few gas bubbles seen near the liver margin compatible with the recent biopsy. Again seen is biliary air, little change from prior study. -monitor on telemetry -hgb down 11.6-->9.7 -to be transfused 1U PRBC and 6 FFP -Hbg on 02/19: 10.5 -trend H/H -IVF, NS @50 -keep NPO pending stabilization of hemorrhage -IR consult, Dr. Nichols; plan for embolization if still actively hemorrhaging -Vasc Sx consult, Dr. Hines HTN -Continue home meds SLE/RA/Raynaud's -Continue home meds Ppx GI: Pepcid VTE: SCDs, AC contraindicated 2/2 hemorrhage Dispo: trend H&H, if stable patient may be discharged. If hgb drop, will need embolization with IR. Case discussed with Dr. Kandice Hagen, PGY-1
[2019-02-19 10:47] LABS: ANISOCYTOSIS SLIGHT; BANDS 1 % (0-2); LYMPHOCYTE 10 % (20-40); MONOCYTE 4 % (0-10); NEUTROPHIL 85 % (50-75); PLATELET ESTIMATE SLIGHTLY DECREASED (NORMAL); TOTAL CELLS COUNTED 100
--- NOTE | 2019-02-19 10:53 | PCM.IRP ---
History of Present Illness - History of Present Illness History of Present Illness: Mrs. Mari seen this am. Pt is s/p right liver biopsy to rule out sclerosing cholangitis and develop a post procedure bleed. Multiphase CT showed expansion of perihepatic hematoma and no active extravasation. Pt labs have stablized and no further drop in H/H appreciated. Pt reports feeling a little better. She has some tenderness in her abdomen. The pain has improved since yesterday. Assesment: s/p US guided liver biopsy complicated by hepatic bleed. Source of bleed is uncertain ( hepatic artery, hepatic vein, or portal vein). The bleeding appears to have stopped. Will continue to monitor her hgb. If it remains >10, then Pt may be discharged. Will plan for angiogram and embolization if there is significant drop in hgb. Objective - Vital Signs/Intake and Output Vital Signs (last 24 hours): Vital Signs - 24 hr 02/18/19 02/18/19 02/18/19 15:25 16:25 16:36 Temperature 98.1 F Pulse Rate 78 87 77 Pulse Rate [ Bilateral Radial] Respiratory 20 18 20 Rate Blood Pressure 117/35 L 111/38 L 137/46 L O2 Sat by Pulse 100 100 97 Oximetry 02/18/19 02/18/19 02/18/19 19:00 19:18 20:06 Temperature Pulse Rate 85 89 Pulse Rate [ Bilateral Radial] Respiratory 15 18 Rate Blood Pressure 122/45 L 150/51 L O2 Sat by Pulse 95 100 100 Oximetry 02/18/19 02/18/19 02/18/19 21:18 22:27 23:43 Temperature Pulse Rate 90 88 98 H Pulse Rate [ Bilateral Radial] Respiratory 20 18 20 Rate Blood Pressure 176/53 H 156/60 H 158/66 H O2 Sat by Pulse 100 99 98 Oximetry 02/19/19 02/19/19 02/19/19 00:10 00:27 00:42 Temperature 98.0 F 97.8 F 97.7 F Pulse Rate 96 H 94 H 87 Pulse Rate [ Bilateral Radial] Respiratory 20 18 20 Rate Blood Pressure 154/69 H 111/58 L 157/58 H O2 Sat by Pulse 99 98 99 Oximetry 02/19/19 02/19/19 02/19/19 01:10 01:55 02:29 Temperature 97.9 F 97.6 F Pulse Rate 85 86 Pulse Rate [ Bilateral Radial] Respiratory 20 22 18 Rate Blood Pressure 154/54 H 155/54 H O2 Sat by Pulse 99 100 Oximetry 02/19/19 02/19/19 02:47 07:25 Temperature 97.9 F Pulse Rate 99 H Pulse Rate [ 92 H Bilateral Radial] Respiratory 20 18 Rate Blood Pressure 162/73 H O2 Sat by Pulse 100 Oximetry Intake and Output (last 12 hours): Intake & Output 02/18/19 02/19/19 02/19/19 18:59 06:59 18:59 Intake Total 550 Output Total 400 Balance 150 Weight 119 lb Intake: Intake, IV Amount 500 Left Antecubital 500 Oral 50 Output: Urine 400 Urine, Voided 400 Other: Voiding Method Bedside Commode - Medications Medications: Current Medications Famotidine (Pepcid) 20 mg IVP DAILY [facility] Last Admin: 02/19/19 10:15 Dose: 20 mg Sodium Chloride (Sodium Chloride 0.9%) 1,000 mls @ 50 mls/hr IV .Q20H ADDY Last Admin: 02/19/19 07:55 Dose: 50 mls/hr - Labs Labs (last 24 hours): Laboratory Results - last 24 hr 02/18/19 02/18/19 02/18/19 16:41 16:41 16:41 WBC 6.0 D RBC 3.41 L Hgb 10.5 L Hct 31.8 L MCV 93.2 MCH 30.8 MCHC 33.1 RDW 15.5 H Plt Count 133 MPV 11.7 Neut % (Auto) 85.6 H Lymph % (Auto) 8.3 L [place] % (Auto) 4.9 Eos % (Auto) 0.9 Baso % (Auto) 0.3 Neut # (Auto) 5.1 Lymph # (Auto) 0.5 L [place] # (Auto) 0.3 Eos # (Auto) 0.1 Baso # (Auto) 0.0 Neutrophils % (Manual) 84 H Band Neutrophils % 2 Lymphocytes % (Manual) 9 L Monocytes % (Manual) 5 Hypersegmented Polys Present Smudge Cells Present Platelet Estimate Normal Large Platelets Present Polychromasia Slight Poikilocytosis (manual Slight Anisocytosis (manual) Slight Microcytosis (manual) Slight Spherocytes Slight PT 11.6 INR 1.1 APTT 30.0 D Sodium 136 Potassium 4.1 Chloride 106 Carbon Dioxide 20 L Anion Gap 14 BUN 15 Creatinine 0.7 Est GFR ( Amer) > 60 Est GFR (Non-Af Amer) > 60 POC Glucose (mg/dL) Random Glucose 96 Calcium 8.4 L Phosphorus Magnesium Total Bilirubin 0.6 AST 191 H D ALT 124 H D Alkaline Phosphatase 327 H Troponin I 0.0370 Total Protein 6.4 Albumin 3.7 Globulin 2.7 Albumin/Globulin Ratio 1.4 Lipase 70 Blood Type Antibody Screen 02/18/19 02/18/19 02/18/19 16:41 16:54 22:55 WBC RBC Hgb 9.7 L Hct 29.1 L MCV MCH MCHC RDW Plt Count MPV Neut % (Auto) Lymph % (Auto) [place] % (Auto) Eos % (Auto) Baso % (Auto) Neut # (Auto) Lymph # (Auto) [place] # (Auto) Eos # (Auto) Baso # (Auto) Neutrophils % (Manual) Band Neutrophils % Lymphocytes % (Manual) Monocytes % (Manual) Hypersegmented Polys Smudge Cells Platelet Estimate Large Platelets Polychromasia Poikilocytosis (manual Anisocytosis (manual) Microcytosis (manual) Spherocytes PT INR APTT Sodium Potassium Chloride Carbon Dioxide Anion Gap BUN Creatinine Est GFR ( Amer) Est GFR (Non-Af Amer) POC Glucose (mg/dL) 112 H Random Glucose Calcium Phosphorus Magnesium Total Bilirubin AST ALT Alkaline Phosphatase Troponin I Total Protein Albumin Globulin Albumin/Globulin Ratio Lipase Blood Type O POSITIVE Antibody Screen Negative 02/19/19 02/19/19 02/19/19 04:48 08:10 08:10 WBC 4.8 RBC 3.36 L Hgb 10.5 L 10.5 L Hct 30.8 L MCV 91.6 MCH 31.2 H MCHC 34.0 RDW 15.9 H Plt Count 115 L MPV 10.3 Neut % (Auto) 87.7 H Lymph % (Auto) 9.8 L [place] % (Auto) 2.5 Eos % (Auto) 0.0 Baso % (Auto) 0.0 Neut # (Auto) 4.2 Lymph # (Auto) 0.5 L [place] # (Auto) 0.1 Eos # (Auto) 0.0 Baso # (Auto) 0.0 Neutrophils % (Manual) 85 H Band Neutrophils % 1 Lymphocytes % (Manual) 10 L Monocytes % (Manual) 4 Hypersegmented Polys Smudge Cells Platelet Estimate Slightly decreased L Large Platelets Polychromasia Poikilocytosis (manual Anisocytosis (manual) Slight Microcytosis (manual) Spherocytes PT INR APTT Sodium 139 Potassium 4.1 Chloride 108 H Carbon Dioxide 21 L Anion Gap 13 BUN 14 Creatinine 0.7 Est GFR ( Amer) > 60 Est GFR (Non-Af Amer) > 60 POC Glucose (mg/dL) Random Glucose 117 H D Calcium 8.0 L Phosphorus 3.4 Magnesium 1.7 Total Bilirubin 0.6 AST 431 H D ALT 315 H D Alkaline Phosphatase 278 H Troponin I Total Protein 6.5 Albumin 3.7 Globulin 2.8 Albumin/Globulin Ratio 1.3 Lipase Blood Type Antibody Screen
--- NOTE | 2019-02-19 11:07 | CT ---
Date of service: 02/18/2019 PROCEDURE: CT Abdomen and Pelvis without intravenous contrast HISTORY: Percutaneous liver biopsy with abdominal pain and bleeding COMPARISON: CT scan 02/28/2019 12:53 p.m.. TECHNIQUE: Contiguous transaxial sections obtained from lung bases through the pelvis performed without IV or IV contrast. Contrast dose: Noncontrast CT scan. Radiation dose: Total exam DLP = 545.69 mGy-cm. This CT exam was performed using one or more of the following dose reduction techniques: Automated exposure control, adjustment of the mA and/or kV according to patient size, and/or use of iterative reconstruction technique. FINDINGS: LOWER THORAX: Unremarkable. LIVER: Expansion of perihepatic hematoma. Areas of slightly increased attenuation seen within segments 5 and 6 right hepatic lobe. This likely represents area bleeding. Punctate amount of air seen along the biopsy tract near the liver capsule. GALLBLADDER AND BILE DUCTS: Ectomy. PANCREAS: Unremarkable. No gross lesion or ductal dilatation. SPLEEN: Unremarkable. ADRENALS: Unremarkable. No mass. KIDNEYS AND URETERS: Unremarkable. No hydronephrosis. No solid mass. VASCULATURE: Moderate calcific plaque. No aortic aneurysm. BOWEL: Unremarkable. No obstruction. No gross mural thickening. APPENDIX: Unremarkable. Normal appendix. PERITONEUM: Unremarkable. No free fluid. No free air. LYMPH NODES: Unremarkable. No enlarged lymph nodes. BLADDER: Unremarkable. REPRODUCTIVE: Unremarkable. BONES: No acute fracture. OTHER FINDINGS: None. IMPRESSION: There is expansion of the perihepatic hematoma since the previous CT scan 02/19/1912 the 12:53 p.m. areas of increased attenuation seen within the right hepatic lobe as detailed above. This may represent area of bleed.
--- NOTE | 2019-02-19 11:15 | CT ---
Date of service: 02/18/2019 PROCEDURE: Contrast-enhanced CT scan of the abdomen is performed 2.5 millimeter contiguous transaxial sections obtained from the lung bases through the iliac crest. Arterial phase and 90 second delayed phase were obtained. Patient was premedicated with Solu-Medrol 125 milligram stands to doses q.4 hours along with 50 milligrams of Benadryl IV 1 hour prior to procedure. HISTORY: This was liver biopsy with bleed. COMPARISON: CT scans 01/25/2019, and 02/18/2019 12:53 pm and 22:10 pm. TECHNIQUE: Contrast dose: 100 milliliters Visipaque 320 Radiation dose: Total exam DLP = 1003.09 mGy-cm. This CT exam was performed using one or more of the following dose reduction techniques: Automated exposure control, adjustment of the mA and/or kV according to patient size, and/or use of iterative reconstruction technique. FINDINGS: LOWER THORAX: Unremarkable. LIVER: Again seen is a large perihepatic hematoma. The area of decreased attenuation seen within the liver segments 5 and 6 likely representing area of bleed. Prior CT scan of portable also 02/01 showed unremarkable liver with no mass. Arterial phase and portal venous phase obtained showed no active extravasation of contrast. GALLBLADDER AND BILE DUCTS: There is cholecystectomy. PANCREAS: Unremarkable. No gross lesion or ductal dilatation. SPLEEN: Unremarkable. ADRENALS: Unremarkable. No mass. KIDNEYS AND URETERS: Unremarkable. No hydronephrosis. No solid mass. Left renal cyst. VASCULATURE: Unremarkable. No aortic aneurysm. Calcific plaque throughout aorta. BOWEL: Evaluation. Included segments of bowel are unremarkable with no mural thickening. APPENDIX: PERITONEUM: LYMPH NODES: Unremarkable. No enlarged lymph nodes. BLADDER: Not included in study. REPRODUCTIVE: Not included in study per BONES: No acute fracture. OTHER FINDINGS: None. IMPRESSION: CT angiogram of the abdomen showed large perihepatic hematoma. Decreased attenuation within the right hepatic lobe consistent with area of parenchymal hemorrhage. While area of decreased attenuation has the appearance of the mass, there is no mass in the previous CT scan from 01/25/2019. There is no active extravasation of contrast seen in both the arterial phase and delayed portal venous phase.
[2019-02-19] MEDS ORDERED: Metoprolol Succinate 25 mg XL Tab PO SCH (11:30)
[2019-02-19] MEDS ORDERED: PLAQUENIL PO SCH (11:30)
--- NOTE | 2019-02-19 11:42 | CP.PCM.PN ---
Subjective - Date & Time of Evaluation Date of Evaluation: 02/19/19 Time of Evaluation: 07:15 - Subjective Subjective: General Surgery Note for Dr. Hines Patient seen and examined at bedside. Patient was stable overnight. CT abd/pelvis with contrast was done and showed the hematoma and some hemoperitoneum. Patient has had stable hgb at 10.5. Her abd pain has improved. No other complaints at this time. Objective - Vital Signs/Intake and Output Vital Signs (last 24 hours): Temp Pulse Resp BP Pulse Ox 97.9 F 99 H 18 162/73 H 100 02/19/19 07:25 02/19/19 07:25 02/19/19 07:25 02/19/19 07:25 02/19/19 07:25 Intake and Output: 02/19/19 02/19/19 06:59 18:59 Intake Total 550 Output Total 400 Balance 150 - Medications Medications: Current Medications Famotidine (Pepcid) 20 mg IVP DAILY [facility] Last Admin: 02/19/19 10:15 Dose: 20 mg Home Med (Plaquenil) 200 mg PO DAILY [facility] Hydrochlorothiazide (Microzide) 12.5 mg PO DAILY [facility] Last Admin: 02/19/19 11:32 Dose: 12.5 mg Sodium Chloride (Sodium Chloride 0.9%) 1,000 mls @ 50 mls/hr IV .Q20H [facility] Last Admin: 02/19/19 07:55 Dose: 50 mls/hr Losartan Potassium (Cozaar) 100 mg PO DAILY [facility] Last Admin: 02/19/19 11:31 Dose: 100 mg Metoprolol Succinate (Toprol Xl) 25 mg PO DAILY [facility] Last Admin: 02/19/19 11:32 Dose: 25 mg Montelukast Sodium (Singulair) 10 mg PO DAILY [facility] Last Admin: 02/19/19 11:32 Dose: 10 mg Temazepam (Restoril) 15 mg PO HS [facility] - Labs Labs: 02/19/19 08:10 02/19/19 08:10 PT 11.6 SECONDS (9.7-12.2) 02/18/19 16:41 INR 1.1 02/18/19 16:41 APTT 30.0 SECONDS (21-34) D 02/18/19 16:41 - Additional Findings Additional findings: - Constitutional Appears: No Acute Distress - Head Exam Head Exam: ATRAUMATIC, NORMOCEPHALIC - Eye Exam Eye Exam: EOMI, Normal appearance Pupil Exam: PERRL - ENT Exam ENT Exam: Mucous Membranes Moist - Respiratory Exam Respiratory Exam: NORMAL BREATHING PATTERN - Cardiovascular Exam Cardiovascular Exam: REGULAR RHYTHM - GI/Abdominal Exam GI & Abdominal Exam: Normal Bowel Sounds, Soft, Tenderness (Right sided). absent: Distended, Firm, Guarding, Hernia, Rebound, Rigid - Extremities Exam Extremities exam: Positive for: normal capillary refill, pedal pulses present - Back Exam Back exam: absent: CVA tenderness (L), CVA tenderness (R) - Neurological Exam Neurological exam: Alert, CN II-XII Intact, Oriented x3 - Psychiatric Exam Psychiatric exam: Normal Affect, Normal Mood - Skin Skin Exam: Dry, Intact, Normal Color, Warm Assessment and Plan - Assessment and Plan (Free Text) Assessment: 73F who presents with abd pain and suspected subcapsular liver hematoma s/p liver biopsy Plan: -diet as tolerated -Trend H/H, transfuse as needed -f/u IR recommendations, if bleeding will need embolization -No surgical intervention indicated at this time -medical management as per primary -Discussed with Dr. Butch Nelson PGY2
[2019-02-19 11:49] LABS: BASO % 0.2 % (0.0-2.0); HEMOGLOBIN 10.5 g/dL (11.0-16.0); LYMPH # 0.6 K/uL (1.0-4.3); LYMPH % 9.5 % (20.0-40.0); MEAN CELL VOLUME 91.8 fL (81.0-99.0); MEAN CORPUSCULAR HEMOGLOBIN 30.9 pg (27.0-31.0); MEAN CORPUSCULAR HGB CONC 33.6 g/dL (33.0-37.0); MEAN PLATELET VOLUME 10.6 fL (7.2-11.7); MONO # 0.4 K/uL (0.0-0.8); MONO % 6.5 % (0.0-10.0); NEUT # 5.3 K/uL (1.8-7.0); NEUT % 83.8 % (50.0-75.0); NRBC % 0.1 % (0.0-2.0); RBC 3.41 Mil/uL (3.80-5.20); RED CELL DISTRIBUTION WIDTH 16.3 % (11.5-14.5); WHITE BLOOD COUNT 6.4 K/uL (4.8-10.8)
[2019-02-19 17:28] LABS: BASO % 0.2 % (0.0-2.0); HEMOGLOBIN 10.6 g/dL (11.0-16.0); LYMPH # 1.1 K/uL (1.0-4.3); LYMPH % 12.6 % (20.0-40.0); MEAN CELL VOLUME 90.8 fL (81.0-99.0); MEAN CORPUSCULAR HEMOGLOBIN 30.9 pg (27.0-31.0); MEAN PLATELET VOLUME 11.5 fL (7.2-11.7); MONO # 0.8 K/uL (0.0-0.8); MONO % 9.4 % (0.0-10.0); NEUT # 6.9 K/uL (1.8-7.0); NEUT % 77.8 % (50.0-75.0); NRBC % 0.1 % (0.0-2.0); RBC 3.44 Mil/uL (3.80-5.20); RED CELL DISTRIBUTION WIDTH 16.3 % (11.5-14.5); WHITE BLOOD COUNT 8.9 K/uL (4.8-10.8)
[2019-02-19 17:37] VITALS: BP 177/68; PULSE 86; TEMP 98.3; O2SAT 98
--- NOTE | 2019-02-19 22:06 | CP.PCM.DIS ---
Provider - Provider Date of Admission: 02/19/19 00:40 Attending physician: Jh Woodson Jr, MD Consults: 02/18/19 16:33 General Surgery Consult Stat Comment: Consulting Provider: Donald Hines Jr. Consulting Physician: Donald Hines Jr. Reason for Consult: abdominal pian s/p biopsy 02/19/19 00:39 Radiology Consult Routine Comment: Consulting Provider: Lance Nichols Consulting Physician: Lance Nichols Reason for Consult: hemorrhage s/p live bx Time Spent in preparation of Discharge (in minutes): 35 Diagnosis - Discharge Diagnosis (1) Liver hemorrhage Status: Acute Hospital Course - Lab Results Lab Results: Most Recent Lab Values WBC 8.9 K/uL (4.8-10.8) 02/19/19 17:22 RBC 3.44 Mil/uL (3.80-5.20) L 02/19/19 17:22 Hgb 10.6 g/dL (11.0-16.0) L 02/19/19 17:22 Hct 31.2 % (34.0-47.0) L 02/19/19 17:22 MCV 90.8 fL (81.0-99.0) 02/19/19 17:22 MCH 30.9 pg (27.0-31.0) 02/19/19 17:22 MCHC 34.0 g/dL (33.0-37.0) 02/19/19 17:22 RDW 16.3 % (11.5-14.5) H 02/19/19 17:22 Plt Count 105 K/uL (130-400) L 02/19/19 17:22 MPV 11.5 fL (7.2-11.7) 02/19/19 17:22 Neut % (Auto) 77.8 % (50.0-75.0) H 02/19/19 17:22 Lymph % (Auto) 12.6 % (20.0-40.0) L 02/19/19 17:22 [place] % (Auto) 9.4 % (0.0-10.0) 02/19/19 17:22 Eos % (Auto) 0.0 % (0.0-4.0) 02/19/19 17:22 Baso % (Auto) 0.2 % (0.0-2.0) 02/19/19 17:22 Neut # (Auto) 6.9 K/uL (1.8-7.0) 02/19/19 17:22 Lymph # (Auto) 1.1 K/uL (1.0-4.3) 02/19/19 17:22 [place] # (Auto) 0.8 K/uL (0.0-0.8) 02/19/19 17:22 Eos # (Auto) 0.0 K/uL (0.0-0.7) 02/19/19 17:22 Baso # (Auto) 0.0 K/uL (0.0-0.2) 02/19/19 17:22 Neutrophils % (Manual) 85 % (50-75) H 02/19/19 08:10 Band Neutrophils % 1 % (0-2) 02/19/19 08:10 Lymphocytes % (Manual) 10 % (20-40) L 02/19/19 08:10 Monocytes % (Manual) 4 % (0-10) 02/19/19 08:10 Hypersegmented Polys Present 02/18/19 16:41 Smudge Cells Present 02/18/19 16:41 Platelet Estimate Slightly decreased (NORMAL) L 02/19/19 08:10 Large Platelets Present 02/18/19 16:41 Polychromasia Slight 02/18/19 16:41 Poikilocytosis (manual Slight 02/18/19 16:41 Anisocytosis (manual) Slight 02/19/19 08:10 Microcytosis (manual) Slight 02/18/19 16:41 Spherocytes Slight 02/18/19 16:41 PT 11.6 SECONDS (9.7-12.2) 02/18/19 16:41 INR 1.1 02/18/19 16:41 APTT 30.0 SECONDS (21-34) D 02/18/19 16:41 Sodium 139 mmol/L (132-148) 02/19/19 08:10 Potassium 4.1 mmol/L (3.6-5.2) 02/19/19 08:10 Chloride 108 mmol/L (98-107) H 02/19/19 08:10 Carbon Dioxide 21 mmol/L (22-30) L 02/19/19 08:10 Anion Gap 13 (10-20) 02/19/19 08:10 BUN 14 mg/dL (7-17) 02/19/19 08:10 Creatinine 0.7 mg/dL (0.7-1.2) 02/19/19 08:10 Est GFR ( Amer) > 60 02/19/19 08:10 Est GFR (Non-Af Amer) > 60 02/19/19 08:10 POC Glucose (mg/dL) 112 mg/dL (65-110) H 02/18/19 16:54 Random Glucose 117 mg/dL (65-105) H D 02/19/19 08:10 Calcium 8.0 mg/dl (8.6-10.4) L 02/19/19 08:10 Phosphorus 3.4 mg/dL (2.5-4.5) 02/19/19 08:10 Magnesium 1.7 mg/dL (1.6-2.3) 02/19/19 08:10 Total Bilirubin 0.6 mg/dL (0.2-1.3) 02/19/19 08:10 AST 431 U/L (14-36) H D 02/19/19 08:10 ALT 315 U/L (9-52) H D 02/19/19 08:10 Alkaline Phosphatase 278 U/L (38-126) H 02/19/19 08:10 Troponin I 0.0370 ng/mL (0.00-0.120) 02/18/19 16:41 Total Protein 6.5 g/dL (6.3-8.3) 02/19/19 08:10 Albumin 3.7 g/dL (3.5-5.0) 02/19/19 08:10 Globulin 2.8 gm/dL (2.2-3.9) 02/19/19 08:10 Albumin/Globulin Ratio 1.3 (1.0-2.1) 02/19/19 08:10 Lipase 70 U/L (23-300) 02/18/19 16:41 Blood Type O POSITIVE 02/18/19 16:41 Antibody Screen Negative 02/18/19 16:41 - Hospital Course Hospital Course: On admission: Patient is a 73 year old female with pmhx of SLE, RA, Reynaud's, HTN, GERD who presents to ED s/p liver bx today with severe abdominal pain. Patient was sent by GI, Dr. Ruiz for US guided liver bx with Dr. 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 Patient subsequently developed severe intermittent abdominal pain to RUQ/RLQ, and was sent down to ED for evaluation. CT revealed moderately large hemorrhage in right liver, perihepatic and right pericolic gutter regions. Hgb dropped to 9.7 from 11.6 2 days ago. Patient reports she feels very cold. Denies dizziness, chest pain, palpitations, SOB, nausea. Hospital Course: 73 year old female with pmhx of SLE, Raynaud's, RA, HTN admitted for hepatic hemorrhage s/p US guided liver bx today Hepatic hemorrhage Imaging: CT: Moderately large hemorrhage in the right liver, perihepatic region, and right pericolic gutter. Few gas bubbles seen near the liver margin compatible with the recent biopsy. Again seen is biliary air, little change from prior study. -monitor on telemetry -hgb down 11.6-->9.7 -to be transfused 1U PRBC and 6 FFP -Hbg on 02/19: 10.5 -trend H/H -IVF, NS @50 -keep NPO pending stabilization of hemorrhage -IR consult, Dr. Nichols; plan for embolization if still actively hemorrhaging -Vasc Sx consult, Dr. Hines HTN -Continue home meds SLE/RA/Raynaud's -Continue home meds Ppx GI: Pepcid VTE: SCDs, AC contraindicated 2/2 hemorrhage Dispo: trend H&H, if stable patient may be discharged. If hgb drop, will need embolization with IR. Case discussed with Dr. Woodson Discharge instructions: Patient is stable for discharge as per Dr. Woodson and Dr. Nichols. Patient is to resume her home medications, which she has confirmed she has at home and does not need refills. You will have abdominal pain for the next few days, but it will subside. Do not take over the counter medications such as ibuprofen/advil, which can cause bleeding and tylenol/acetaminophen which may harm the liver. Patient is to follow up with Dr. Woodson within one week of discharge. Return to the emergency room for worsening abdominal pain, shortness of breath, dizziness and any new symptoms. Discharge Exam - Head Exam Head Exam: ATRAUMATIC, NORMOCEPHALIC - Additional Findings Additional findings: - Constitutional Appears: No Acute Distress - Head Exam Head Exam: ATRAUMATIC, NORMOCEPHALIC - Eye Exam Eye Exam: EOMI, Normal appearance Additional comments: mild conjunctival pallor. - ENT Exam ENT Exam: Mucous Membranes Moist - Neck Exam Neck Exam: Full ROM, Normal Inspection - Respiratory Exam Respiratory Exam: Clear to Ausculation Bilateral, NORMAL BREATHING PATTERN. absent: Rales, Rhonchi, Wheezes - Cardiovascular Exam Cardiovascular Exam: REGULAR RHYTHM, +S1, +S2 - GI/Abdominal Exam GI & Abdominal Exam: Soft, Tenderness (diffuse), Normal Bowel Sounds. absent: Distended, Firm, Guarding, Rigid, Hernia, Mass, Rebound - Extremities Exam Extremities Exam: Full ROM, Normal Inspection. absent: Calf Tenderness, Pedal Edema, Tenderness - Neurological Exam Neurological Exam: Alert, Awake, CN II-XII Intact (grossly), Oriented x3 Additional comments: Moves all extremities. - Psychiatric Exam Psychiatric exam: Normal Affect, Normal Mood - Skin Skin Exam: Dry, Pallor (slight), Warm Additional comments: capillary refill 3 seconds. Discharge Plan - Follow Up Plan Condition: CRITICAL Disposition: HOME/ ROUTINE Instructions: Acute Abdominal Pain (DC) Additional Instructions: Patient is stable for discharge as per Dr. Woodson and Dr. Nichols. Patient is to resume her home medications, which she has confirmed she has at home and does not need refills. You will have abdominal pain for the next few days, but it will subside. Do not take over the counter medications such as ibuprofen/advil, which can cause bleeding and tylenol/acetaminophen which may harm the liver. Patient is to follow up with Dr. Woodson within one week of discharge. Return to the emergency room for worsening abdominal pain, shortness of breath, dizziness and any new symptoms. El paciente se encuentra estable para el amalia segn el Dr. Woodson y el Dr. Nichols. La paciente debe reanudar carole medicamentos caseros. No tome medicamentos de venta viv segundo el ibuprofeno / advil, que puede causar sangrado y tylenol / acetaminofeno que pueden daar el hgado. El paciente debe hacer un seguimiento con el Dr. Woodson dentro de radha semana despus del amalia. Regrese a la meir de emergencias para empeorar el dolor abdominal, falta de aire, mareos y cualquier sntoma nuevo.
== END 2019-02-19 18:54 | disposition home or self-care (01) | DRG 919 ==
LOC: C.ER 15:20 → C.9E 02-19 00:40 → C.5S 02-19 01:23
PROVIDERS: ADMIT Internal Medicine; ATTEND Internal Medicine
PROC: 30233K1 Transfusion of Nonautologous Frozen Plasma into Peripheral Vein, Percutaneous Approach (ICD-10-PCS; principal; 2019-02-19)
DX: K91.840 Postprocedural hemorrhage of a digestive system organ or structure following a digestive system procedure (principal); K66.1 Hemoperitoneum; K83.09 Other cholangitis; I10 Essential (primary) hypertension; I73.00 Raynaud's syndrome without gangrene; M32.9 Systemic lupus erythematosus, unspecified; Y84.8 Other medical procedures as the cause of abnormal reaction of the patient, or of later complication, without mention of misadventure at the time of the procedure; M06.9 Rheumatoid arthritis, unspecified; K21.9 Gastro-esophageal reflux disease without esophagitis; M81.0 Age-related osteoporosis without current pathological fracture; Z86.010 Personal history of colon polyps; Z87.01 Personal history of pneumonia (recurrent); Z87.891 Personal history of nicotine dependence; Z90.49 Acquired absence of other specified parts of digestive tract; Z90.710 Acquired absence of both cervix and uterus

== ENCOUNTER 2019-02-24 19:50 | Inpatient (IN) | payer MEDICARE ==
[2019-02-24 19:51] VITALS: BMI 19.2
[2019-02-24] MEDS ORDERED: Sodium Chloride 0.9% 500 ML IV ONE (20:05)
[2019-02-24] MEDS ORDERED: Morphine 4 MG/ML VIAL ONE (20:24)
[2019-02-24] MEDS ORDERED: DiphenhydrAMINE 50 mg/ml Inj ONE (20:24)
[2019-02-24] MEDS ORDERED: Sodium Chloride 0.45% 1,000 ML IV ONE (20:24)
[2019-02-24] MEDS ORDERED: MethylPREDNISolone 40 mg Vial IVP STA (20:25)
[2019-02-24] MEDS ORDERED: DiphenhydrAMINE 50 mg/ml Inj IVP STA (20:25)
[2019-02-24 20:27] LABS: BASO % 0.5 % (0.0-2.0); EOS # 0.3 K/uL (0.0-0.7); EOS % 6.4 % (0.0-4.0); HEMOGLOBIN 10.3 g/dL (11.0-16.0); LYMPH # 1.3 K/uL (1.0-4.3); LYMPH % 25.6 % (20.0-40.0); MEAN CELL VOLUME 93.6 fL (81.0-99.0); MEAN CORPUSCULAR HEMOGLOBIN 31.1 pg (27.0-31.0); MEAN CORPUSCULAR HGB CONC 33.2 g/dL (33.0-37.0); MEAN PLATELET VOLUME 10.2 fL (7.2-11.7); MONO # 0.7 K/uL (0.0-0.8); MONO % 13.3 % (0.0-10.0); NEUT # 2.7 K/uL (1.8-7.0); NEUT % 54.2 % (50.0-75.0); RBC 3.32 Mil/uL (3.80-5.20); RED CELL DISTRIBUTION WIDTH 15.6 % (11.5-14.5)
[2019-02-24 21:00] LABS: ALB/GLOB RATIO 1.2 (1.0-2.1); ALBUMIN 4.1 g/dL (3.5-5.0); ALT/SGPT 108 U/L (9-52); AST/SGOT 159 U/L (14-36); BLOOD UREA NITROGEN 20 mg/dL (7-17); CALCIUM 9.1 mg/dl (8.6-10.4); GFR NON-AFRICAN AMERICAN > 60; LIPASE 231 U/L (23-300)
[2019-02-24] MEDS ORDERED: Iodixanol 320 MG/ML 100 ML BOTTLE IV ONE (21:03)
--- NOTE | 2019-02-24 22:50 | C.PDOC ---
History Of Present Illness 73 y/o female brought to ER by family for evaluation of severe epigastric abdominal pain. Patient was recently admitted for abdominal bleeding due to liver biopsy in [facility] ER on 02/19/19. Patient denies having fever,chills, nausea, vomiting, and diarrhea. Time Seen by Provider: 02/24/19 19:59 Chief Complaint (Nursing): Abdominal Pain History Per: Patient History/Exam Limitations: no limitations Onset/Duration Of Symptoms: Days Current Symptoms Are (Timing): Still Present Severity: Moderate Past Medical History Reviewed: Historical Data, Nursing Documentation, Vital Signs Vital Signs: Last Vital Signs Temp 97.7 F 02/24/19 19:56 Pulse 94 H 02/24/19 22:03 Resp 22 02/24/19 22:03 BP 165/45 H 02/24/19 22:03 Pulse Ox 100 02/24/19 22:03 Primary Care Provider: Jh Woodson Jr. - Medical History PMH: Colonic Polyps (ADENOMATOUS), Gastritis, Gall Bladder Disease, HTN, O steoporosis, Pneumonia (MANY YEARS AGO), Rheumatoid Arthritis Denies: Chronic Kidney Disease Surgical History: Appendectomy, Cholecystectomy, Endoscopy - [facility] Procedures ENDOSC POLYPECTOMY OF LG INTEST (11/18/13) TRANSFUSE NONAUT FROZEN PLASMA IN PERIPH VEIN, PERC (02/19/19) Family History: States: No Known Family Hx - Social History Hx Tobacco Use: No Hx Alcohol Use: No Hx Substance Use: No - Immunization History Hx Tetanus Toxoid Vaccination: Yes Hx Influenza Vaccination: Yes Hx Pneumococcal Vaccination: Yes Review Of Systems Except As Marked, All Systems Reviewed And Found Negative. Constitutional: Negative for: Fever, Chills Gastrointestinal: Positive for: Abdominal Pain. Negative for: Nausea, Vomiting, Diarrhea Physical Exam - Physical Exam Appears: No Acute Distress, Other Skin: Warm, Dry, Pale Head: Atraumatic, Normacephalic Eye(s): bilateral: Normal Inspection Nose: Normal Oral Mucosa: Moist Neck: Supple Chest: Symmetrical Cardiovascular: Rhythm Regular Respiratory: Normal Breath Sounds, No Rales, No Rhonchi, No Wheezing Gastrointestinal/Abdominal: Soft, Tenderness (epigastric tenderness), No Guarding, No Rebound Neurological/Psych: Oriented x3, Normal Speech ED Course And Treatment - Laboratory Results Result Diagrams: 02/27/19 10:50 02/27/19 05:13 Lab Results: Total Bilirubin 1.0 mg/dL (0.2-1.3) 02/24/19 20:21 AST 159 U/L (14-36) H D 02/24/19 20:21 ALT 108 U/L (9-52) H D 02/24/19 20:21 Alkaline Phosphatase 422 U/L (38-126) H D 02/24/19 20:21 Total Protein 7.3 g/dL (6.3-8.3) 02/24/19 20:21 Albumin 4.1 g/dL (3.5-5.0) 02/24/19 20:21 Globulin 3.3 gm/dL (2.2-3.9) 02/24/19 20:21 Albumin/Globulin Ratio 1.2 (1.0-2.1) 02/24/19 20:21 Lipase 231 U/L (23-300) 02/24/19 20:21 Lab Interpretation: Abnormal (mild anemia, no sig change c/w 02/19) ECG: Interpreted By Me ECG Rhythm: Sinus Rhythm ECG Interpretation: Normal Rate From EC O2 Sat by Pulse Oximetry: 100 (RA) Pulse Ox Interpretation: Normal - Radiology CXR: Interpreted by Me CXR Interpretation: Yes: No Acute Disease Reevaluation Time: 22:50 Reassessment Condition: Improved - Physician Consult Information Outcome Of Conversation: 0: d/w Surg young Olvera to follow-, no acute issues. 0: d/w Medicine Wade and young Stover to Obs. bowel regimen overnight. repeat labs in AM Medical Decision Making Medical Decision Making: Abd: resolving hematoma near liver ? evolution duodenitis/jejunitis improved with ED tx Constipation prob due to bed bound @ home and narcotic meds regimen bowel regimen overnight. Disposition Doctor Will See Patient In The: Hospital Counseled Patient/Family Regarding: Studies Performed, Diagnosis - Disposition Disposition: HOSPITALIZED Disposition Time: 22:51 Condition: GOOD - Clinical Impression Clinical Impression: Abdominal pain - Scribe Statement The provider has reviewed the documentation as recorded by the Scribe Heidi Mandujano Provider Attestation: All medical record entries made by the Scribe were at my direction and personally dictated by me. I have reviewed the chart and agree that the record accurately reflects my personal performance of the history, physical exam, medical decision making, and the department course for this patient. I have also personally directed, reviewed, and agree with the discharge instructions and disposition.
--- NOTE | 2019-02-24 23:12 | CP.PCM.HP ---
History of Present Illness - History of Present Illness History of Present Illness: Patient is a 73 year old female with pmhx of SLE, RA, Reynaud's, HTN, GERD who was recently admitted for hepatic hemorrhage s/p liver bx, who presents to the ED with complaints of worsening abdominal pain since this evening. Patient was discharged on 02/19 after she sustained a hepatic hemorrhage s/p liver bx. Patient was discharged with contained hemoperitoneum and stable hgb s/p 1U PRBC. She reports intermittent abdominal pain s/p discharge, however today experienced more severe lower/epigastric abdominal pain only temporarily relieved with Tylenol. Patient reports chronic constipation requiring home laxative use with minimal improvement. Denies headache, dizziness, chest pain, SOB, palpitations, nausea. PMD: Dr. Woodson PMHx: SLE, RA, Reynaud's, HTN, GERD PSHx: appendectomy, cholecystectomy, c-sect x2, hysterectomy Meds: methotrexate, plaquenil, metoprolol, HCTZ, nexium Allergies: ASA, iodine, codeine, PCN, lactose SocHx: former smoker, denies alcohol/tobacco use Present on Admission - Present on Admission Any Indicators Present on Admission: No Review of Systems - Constitutional Constitutional: absent: Chills, Headache - EENT Eyes: absent: Change in Vision - Cardiovascular Cardiovascular: absent: Chest Pain, Palpitations, Syncope - Respiratory Respiratory: absent: Cough, Dyspnea - Gastrointestinal Gastrointestinal: Abdominal Pain, Constipation. absent: Nausea, Vomiting - Genitourinary Genitourinary: absent: Difficulty Urinating, Dysuria - Neurological Neurological: absent: Dizziness, Syncope Past Patient History - Infectious Disease Hx of Infectious Diseases: None - Past Medical History & Family History Past Medical History?: Yes - Past Social History Smoking Status: Never Smoked - CARDIAC Hx Hypertension: Yes - PULMONARY Hx Pneumonia: Yes (MANY YEARS AGO) - HEENT Hx HEENT Problems: No - RENAL Hx Chronic Kidney Disease: No - ENDOCRINE/METABOLIC Hx Endocrine Disorders: Yes Hx Systemic Lupus Erythematosus: Yes - HEMATOLOGICAL/ONCOLOGICAL Hx Blood Disorders: Yes Hx Shingles: Yes - INTEGUMENTARY Hx Dermatological Problems: No - MUSCULOSKELETAL/RHEUMATOLOGICAL Hx Osteoporosis: Yes Hx Rheumatoid Arthritis: Yes - GASTROINTESTINAL Hx Gall Bladder Disease: Yes Hx Gastritis: Yes - GENITOURINARY/GYNECOLOGICAL Hx Genitourinary Disorders: No - PSYCHIATRIC Hx Substance Use: No - SURGICAL HISTORY Hx Appendectomy: Yes Hx Cholecystectomy: Yes - ANESTHESIA Hx Anesthesia: Yes Hx Anesthesia Reactions: No Hx Malignant Hyperthermia: No Meds Allergies/Adverse Reactions: Allergies Allergy/AdvReac Type Severity Reaction Status Date / Time aspirin Allergy Intermediate RASH Verified 02/18/19 15:37 Iodine and Iodide Containing Allergy Intermediate ITCHING Verified 02/18/19 15:37 Produc codeine AdvReac Severe DIARRHEA Verified 02/18/19 15:37 lactose AdvReac Severe DIARRHEA Verified 02/18/19 15:37 Penicillins AdvReac Severe DIARRHEA Verified 02/18/19 15:37 Physical Exam - Constitutional Appears: Non-toxic, No Acute Distress - Head Exam Head Exam: ATRAUMATIC, NORMAL INSPECTION, NORMOCEPHALIC - Eye Exam Eye Exam: EOMI, Normal appearance Pupil Exam: NORMAL ACCOMODATION, PERRL - ENT Exam ENT Exam: Mucous Membranes Moist, Normal Exam - Neck Exam Neck exam: Positive for: Normal Inspection - Respiratory Exam Respiratory Exam: Clear to Auscultation Bilateral, NORMAL BREATHING PATTERN - Cardiovascular Exam Cardiovascular Exam: REGULAR RHYTHM, +S1, +S2. absent: Tachycardia - GI/Abdominal Exam GI & Abdominal Exam: Normal Bowel Sounds, Soft, Tenderness (lower quadrants, epigastrium; no guarding, no ecchymosis). absent: Distended, Guarding - Extremities Exam Extremities exam: Positive for: normal inspection. Negative for: calf tenderness, pedal edema - Neurological Exam Neurological exam: Alert, Oriented x3 - Psychiatric Exam Psychiatric exam: Normal Affect, Normal Mood - Skin Skin Exam: Dry, Intact, Pallor, Warm Results - Vital Signs Recent Vital Signs: Last Vital Signs Temp 97.7 F 02/24/19 19:56 Pulse 85 02/24/19 23:11 Resp 19 02/24/19 23:11 BP 110/43 L 02/24/19 23:11 Pulse Ox 100 02/24/19 23:11 - Labs Result Diagrams: 02/24/19 20:21 02/24/19 20:21 Labs: Laboratory Results - last 24 hr 02/24/19 02/24/19 20:21 20:21 WBC 5.0 RBC 3.32 L Hgb 10.3 L Hct 31.1 L MCV 93.6 D MCH 31.1 H MCHC 33.2 RDW 15.6 H Plt Count 126 L D MPV 10.2 Neut % (Auto) 54.2 Lymph % (Auto) 25.6 Simpson % (Auto) 13.3 H Eos % (Auto) 6.4 H Baso % (Auto) 0.5 Neut # (Auto) 2.7 Lymph # (Auto) 1.3 Simpson # (Auto) 0.7 Eos # (Auto) 0.3 Baso # (Auto) 0.0 Sodium 136 Potassium 4.9 Chloride 101 Carbon Dioxide 28 Anion Gap 12 BUN 20 H Creatinine 0.7 Est GFR ( Amer) > 60 Est GFR (Non-Af Amer) > 60 Random Glucose 109 H Calcium 9.1 Total Bilirubin 1.0 AST 159 H D ALT 108 H D Alkaline Phosphatase 422 H D Total Protein 7.3 Albumin 4.1 Globulin 3.3 Albumin/Globulin Ratio 1.2 Lipase 231 Assessment & Plan - Assessment and Plan (Free Text) Assessment: 73 year old female w/ pmhx of hemoperitoneum s/p liver bx, PBC, SLE, RA, Reynaud's, HTN, GERD admitted for evaluation of worsening abdominal pain Plan: Abdominal pain likely hemoperitoneum and constipation -f/u CT A/P report -hgb stable at 10.3 from 10.6 upon discharge -pain medication prn, tramodol -mag-citrate -IVF, NS @75 -surgery consult, Dr. Hines HTN -continue home meds, hydralazine, metoprolol SLE/RA/Raynaud's -hold home meds Ppx GI: Pepcid VTE: SCDs, AC contraindicated 2/2 hemorrhage Discussed w/ Dr. Kandice Shi, PGY-1
[2019-02-24] MEDS ORDERED: Magnesium Citrate Oral SOL (300 ml) PO ONE (23:20)
[2019-02-24] MEDS ORDERED: Sodium Chloride 0.9% 1,000 ML IV SCH (23:30)
--- NOTE | 2019-02-24 23:36 | CP.PCM.CON ---
History of Present Illness - History of Present Illness History of Present Illness: Surgery: Dr. Hines Reason for consult: abdominal pain, known hemoperitoneum s/p liver biopsy HPI: Patient is a 73 y/o female who was recently admitted s/p liver biopsy due bleeding from biopsy site. Patient underwent embolization at that time and once Hgb was stable was discharged home. As of this evening, patient developed abd ominal pain, mainly on right side extending into pelvis. She states she took some tylenol which helped a little but the pain did not go away completely. She denies having pain this intense since the biopsy which was concerning so the family brought her in for evaluation. She denies f/c/n/v. She report chronic constipation which she taked MOM. She has been tolerating a regular diet. She denies chest pain, SOB, dizzines or syncope. 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 PMH: HTN, lupus, RA, gastritis, shingles, colon polyps, PBC PSH: cholecystectomy, appendectomy, colonoscopy, endoscopy, hysterectomy Social: denies ETOH, tobacco, or drug use Fam: noncontributory Review of Systems - Review of Systems All systems: reviewed and no additional remarkable complaints except Review of Systems: unless stated in HPI - Constitutional Constitutional: absent: Anorexia, Chills, Fever - EENT Eyes: absent: Blurred Vision, Change in Vision Ears: absent: Disequilibrium, Dizziness Nose/Mouth/Throat: absent: Nose Pain, Hoarsness, Sore Throat - Cardiovascular Cardiovascular: absent: Chest Pain, Dyspnea - Respiratory Respiratory: absent: Cough, Wheezing - Gastrointestinal Gastrointestinal: Abdominal Pain, Constipation. absent: Bloating, Cramping, Diarrhea, Fecal Incontinence, Hematochezia, Loose Stools, Melena, Nausea - Genitourinary Genitourinary: absent: Hematuria, Pyuria - Musculoskeletal Musculoskeletal: Arthralgias - Integumentary Integumentary: absent: Acne, Swelling - Neurological Neurological: absent: Headaches, Syncope - Psychiatric Psychiatric: absent: Confusion, Memory Loss - Endocrine Endocrine: absent: Polydipsia, Polyphagia - Hematologic/Lymphatic Hematologic: absent: Easy Bleeding, Easy Bruising Past Patient History - Infectious Disease Hx of Infectious Diseases: None - Past Medical History & Family History Past Medical History?: Yes - Past Social History Smoking Status: Never Smoked - CARDIAC Hx Hypertension: Yes - PULMONARY Hx Pneumonia: Yes (MANY YEARS AGO) - HEENT Hx HEENT Problems: No - RENAL Hx Chronic Kidney Disease: No - ENDOCRINE/METABOLIC Hx Endocrine Disorders: Yes Hx Systemic Lupus Erythematosus: Yes - HEMATOLOGICAL/ONCOLOGICAL Hx Blood Disorders: Yes Hx Shingles: Yes - INTEGUMENTARY Hx Dermatological Problems: No - MUSCULOSKELETAL/RHEUMATOLOGICAL Hx Osteoporosis: Yes Hx Rheumatoid Arthritis: Yes - GASTROINTESTINAL Hx Gall Bladder Disease: Yes Hx Gastritis: Yes - GENITOURINARY/GYNECOLOGICAL Hx Genitourinary Disorders: No - PSYCHIATRIC Hx Substance Use: No - SURGICAL HISTORY Hx Appendectomy: Yes Hx Cholecystectomy: Yes - ANESTHESIA Hx Anesthesia: Yes Hx Anesthesia Reactions: No Hx Malignant Hyperthermia: No Meds Allergies/Adverse Reactions: Allergies Allergy/AdvReac Type Severity Reaction Status Date / Time aspirin Allergy Intermediate RASH Verified 02/18/19 15:37 Iodine and Iodide Containing Allergy Intermediate ITCHING Verified 02/18/19 15:37 Produc codeine AdvReac Severe DIARRHEA Verified 02/18/19 15:37 lactose AdvReac Severe DIARRHEA Verified 02/18/19 15:37 Penicillins AdvReac Severe DIARRHEA Verified 02/18/19 15:37 - Medications Medications: Current Medications Hydralazine HCl (Apresoline) 25 mg PO BID [facility] Sodium Chloride (Sodium Chloride 0.9%) 1,000 mls @ 75 mls/hr IV .[id number] ADDY Magnesium Citrate (Citrate Of Mag) 300 ml PO ONCE ONE Stop: 02/24/19 23:21 Metoprolol Succinate (Toprol Xl) 25 mg PO DAILY [facility] Pantoprazole Sodium (Protonix Ec Tab) 40 mg PO DAILY [facility] Physical Exam - Constitutional Appears: Non-toxic, No Acute Distress - Head Exam Head Exam: ATRAUMATIC, NORMOCEPHALIC - Eye Exam Eye Exam: EOMI, Normal appearance - ENT Exam ENT Exam: Mucous Membranes Moist - Respiratory Exam Respiratory Exam: NORMAL BREATHING PATTERN. absent: Respiratory Distress - Cardiovascular Exam Cardiovascular Exam: REGULAR RHYTHM. absent: Tachycardia - GI/Abdominal Exam GI & Abdominal Exam: Soft, Tenderness (minimal in the LLQ and pelvis ). absent: Distended, Guarding, Rebound, Rigid - Extremities Exam Extremities exam: Positive for: normal inspection. Negative for: calf tenderness - Neurological Exam Neurological exam: Alert, Oriented x3 - Psychiatric Exam Psychiatric exam: Normal Affect, Normal Mood Results - Vital Signs Recent Vital Signs: Last Vital Signs Temp 97.7 F 05/12/19 19:56 Pulse 85 02/24/19 23:11 Resp 19 02/24/19 23:11 BP 110/43 L 02/24/19 23:11 Pulse Ox 100 02/24/19 23:11 - Labs Result Diagrams: 02/24/19 20:21 02/24/19 20:21 Labs: Laboratory Results - last 24 hr 02/24/19 02/24/19 20:21 20:21 WBC 5.0 RBC 3.32 L Hgb 10.3 L Hct 31.1 L MCV 93.6 D MCH 31.1 H MCHC 33.2 RDW 15.6 H Plt Count 126 L D MPV 10.2 Neut % (Auto) 54.2 Lymph % (Auto) 25.6 [place] % (Auto) 13.3 H Eos % (Auto) 6.4 H Baso % (Auto) 0.5 Neut # (Auto) 2.7 Lymph # (Auto) 1.3 [place] # (Auto) 0.7 Eos # (Auto) 0.3 Baso # (Auto) 0.0 Sodium 136 Potassium 4.9 Chloride 101 Carbon Dioxide 28 Anion Gap 12 BUN 20 H Creatinine 0.7 Est GFR ( Amer) > 60 Est GFR (Non-Af Amer) > 60 Random Glucose 109 H Calcium 9.1 Total Bilirubin 1.0 AST 159 H D ALT 108 H D Alkaline Phosphatase 422 H D Total Protein 7.3 Albumin 4.1 Globulin 3.3 Albumin/Globulin Ratio 1.2 Lipase 231 - Impressions Impression: CT scan appears to show a stable if not somewhat improved hemoperitoneum compared to prior angiography Assessment & Plan - Assessment and Plan (Free Text) Assessment: 73 y/o female w/ abdominal pain, possibly 2/2 hemoperitoneum - stable Plan: -Hgb 10.3 (stable) -VSS - no clinical findings suspicious of persistent bleeding -may need stronger pain control - consider ultram -ok for diet -OOB -hemoperitoneum will eventually resolve -if concerns for continue liver bleeding consider repeat CT angio of liver and IR evaluation -Liver enzymes improving - repeat labs in am -no acute surgical intervention at this time -further recs per Dr. Hines AKite PGY4
--- NOTE | 2019-02-25 00:24 | PCM.RRT ---
[employer] Nurses Assessment - Situation Date: 02/25/19 Time [employer] was called: 00:04 [employer] Responder Arrival Time:: 00:04 [employer] [employer] Location:: Med/Surg Room Number: 656-B [facility] [employer] Reason for Call: Looks Sicker [employer] Called By: RN - IV IV Inserted during [employer]?: No - Respiratory [employer] [employer] Delivery Method: Nasal Cannula @L/min - Diagnostic Test Ordered EKG: Yes - Stat Labs Ordered [employer] Stat Labs Ordered: TROPONIN - Vital Signs Vital Signs: BP 105/57 HR 75 O2 100 T 98.6 BG 191 - [place] Coma Scale Coma Scale Eye Opening: Spontaneous Coma Scale Motor: Obeys Commands Movement Coma Scale Verbal: Oriented Coma Scale Total: 15 - Recommendations 5) [facility] Level of Care Recommendations: Remain in current setting Notifications: Attending Physician I.Reason for [employer] - A) Acute Change in Patient: (Select all that apply): Staff member or family is worried about patient Subjective: [employer] called for patient 2/2 weakness. Patient was on the commode and suddenly became weak and lethargic. Family members at bedside and nurse witnessing event deny syncopal event. Patient was promptly moved to bed. Upon evaluation, patient denies lightheadedness, LOC, chest pain, SOB. She reports she was on the commode and became weak. Vitals taken upon arrival reveal BP 105/57, HR 75, O2 100%, BG 191. Family reports patient complained of tiredness after receiving morphine in the ED. Currently patient reports she felt weak and is now tired. - Neurological Status (Select all that apply): Alert, Responsive, Oriented, Verbal, Follows Commands - Respiratory Oxygen Delivery Method: Nasal Cannula @L/min - Constitutional Appears: Non-toxic, No Acute Distress - Head Head Exam: ATRAUMATIC, NORMAL INSPECTION, NORMOCEPHALIC - Eyes Eye Exam: EOMI, Normal appearance - Respiratory Exam Respiratory Exam: Clear to Ausculation Bilateral, NORMAL BREATHING PATTERN - Cardiovascular Exam Cardiovascular Exam: REGULAR RHYTHM, +S1, +S2 - GI/Abdominal Exam GI & Abdominal Exam: Soft, Tenderness, Normal Bowel Sounds - Neurological Exam Neurological Exam: Alert, Awake, Oriented x3 - Extremities Exam Extremities Exam: Normal Inspection. absent: Calf Tenderness, Pedal Edema Plan - Assessment of Findings&Treatment Plan [employer] called 2/2 acute onset weakness -continue to monitor on telemetry -CARMEN ordered -EKG: finding unchanged from that in ED -continue IVF -fall precautions -bedside commode Weakness likely 2/2 morphine and benadryl given in ED Discussed w/ Dr. Curtis -Dora Shi, PGY-1
[2019-02-25] MEDS ORDERED: Magnesium Citrate Oral SOL (300 ml) PO ONE (01:00)
[2019-02-25 01:23] LABS: CK-MB 3.98 ng/mL (0.0-3.38); TROPONIN I 0.029 ng/mL (0.00-0.120)
[2019-02-25 04:02] LABS: SQUAMOUS EPITHIAL < 1 /hpf (0-5); URINE BILIRUBIN NEGATIVE (NEGATIVE); URINE BLOOD NEGATIVE (NEGATIVE); URINE CLARITY Hazy (Clear); URINE COLOR Amber (YELLOW); URINE GLUCOSE (UA) NORMAL (Normal); URINE LEUKOCYTE ESTERASE NEG Leu/uL (Negative); URINE PROTEIN NEGATIVE (NEGATIVE); URINE UROBILINOGEN NORMAL mg/dL (0.2-1.0)
[2019-02-25 07:43] LABS: LYMPH # 0.2 K/uL (1.0-4.3); MONO # 0.1 K/uL (0.0-0.8); NEUT # 5.2 K/uL (1.8-7.0); NRBC % 0.1 % (0.0-2.0); WHITE BLOOD COUNT 5.5 K/uL (4.8-10.8)
[2019-02-25 07:51] LABS: BASO % 0.1 % (0.0-2.0); EOS % 0.1 % (0.0-4.0); LYMPH % 3.5 % (20.0-40.0); MEAN CORPUSCULAR HEMOGLOBIN 31.5 pg (27.0-31.0); MEAN CORPUSCULAR HGB CONC 33.5 g/dL (33.0-37.0); MEAN PLATELET VOLUME 10.8 fL (7.2-11.7); MONO % 1.8 % (0.0-10.0); NEUT % 94.5 % (50.0-75.0); PLATELET COUNT 141 K/uL (130-400); RED CELL DISTRIBUTION WIDTH 15.8 % (11.5-14.5)
[2019-02-25 07:53] LABS: HEMOGLOBIN 8.2 g/dL (11.0-16.0)
[2019-02-25 08:00] LABS: ALB/GLOB RATIO 1.3 (1.0-2.1); ALBUMIN 3.6 g/dL (3.5-5.0); ALT/SGPT 152 U/L (9-52); AST/SGOT 210 U/L (14-36); BLOOD UREA NITROGEN 18 mg/dL (7-17); GFR NON-AFRICAN AMERICAN > 60
[2019-02-25 08:08] LABS: CK-MB 4.8 ng/mL (0.0-3.38); TROPONIN I 0.031 ng/mL (0.00-0.120)
--- NOTE | 2019-02-25 08:44 | CT ---
Date of service: 02/24/2019 PROCEDURE: CT Abdomen and Pelvis with contrast HISTORY: epigastric, recent liver bx/bleed COMPARISON: 02/18/2019 and 01/25/2019 TECHNIQUE: Contrast dose: 100 mL Visipaque 320 Radiation dose: Total exam DLP = 951.97 mGy-cm. This CT exam was performed using one or more of the following dose reduction techniques: Automated exposure control, adjustment of the mA and/or kV according to patient size, and/or use of iterative reconstruction technique. FINDINGS: LOWER THORAX: Minimal linear scar/atelectasis in both lower lobes. LIVER: Normal size. To large irregular heterogeneous masses/collections are seen within the liver parenchyma in the right hepatic lobe. The largest collection measures 5.9 x 3.2 by 8.5 cm, essentially unchanged from previous. There is a 2nd smaller collection now seen in the more posterior inferior right lobe as well. Likely hemorrhage status post percutaneous biopsy. There is intermediate attenuation fluid seen about the liver, in both pericolic gutters and in the pelvis. The extent of fluid cannot be readily compared to the prior CT as the previous CT evaluated only the abdomen and did not include the pelvis. Nevertheless, the perihepatic fluid appears grossly unchanged in extent. The fluid measures 71 Hounsfield units consistent with blood products. No biliary dilatation. Smooth padded contour. GALLBLADDER AND BILE DUCTS: Status post cholecystectomy. PANCREAS: Unremarkable. No gross lesion or ductal dilatation. SPLEEN: Unremarkable. ADRENALS: Unremarkable. No mass. KIDNEYS AND URETERS: Left upper pole renal cortical cyst, 2.7 cm. No renal calculus or hydronephrosis. VASCULATURE: Unremarkable. No aortic aneurysm. There is atherosclerotic calcification of the abdominal aorta. BOWEL: There is circumferential mural thickening of multiple loops of jejunum consistent with nonspecific enteritis. There is no bowel obstruction. There are no other abnormal bowel loops identified. APPENDIX: Not identified. PERITONEUM: As above. Likely hemoperitoneum. No pneumoperitoneum. LYMPH NODES: Unremarkable. No enlarged lymph nodes. BLADDER: Unremarkable. REPRODUCTIVE: Hysterectomy BONES: No acute fracture. OTHER FINDINGS: None. IMPRESSION: High attenuation hemoperitoneum consistent with blood products grossly unchanged in extent when compared to the prior examination of 02/18/2019 though comparison is limited as above. Large intrahepatic mass/collections 1 of which is new since prior examination. Likely post biopsy hematoma(s). Nonspecific enteritis involving multiple loops of jejunum. Additional nonacute findings as above. The preliminary findings for this examination were reported by [facility] Radiology at 10:57 p.m. on 02/24/2019. There is concurrence of this report with the preliminary findings.
[2019-02-25] MEDS: Metoprolol Succinate 25 mg XL Tab PO SCH (09:38)
[2019-02-25] MEDS: Pantoprazole 40 mg EC Tab PO SCH (09:38)
[2019-02-25 10:09] LABS: ANISOCYTOSIS SLIGHT; BANDS 1 % (0-2); HYPOCHROMIC SLIGHT; LYMPHOCYTE 5 % (20-40); MONOCYTE 2 % (0-10); NEUTROPHIL 92 % (50-75); PLATELET ESTIMATE NORMAL (NORMAL); TOTAL CELLS COUNTED 100
[2019-02-25 10:11] LABS: PARTIAL THROMBOPLASTIN TIME 32.2 SECONDS (21-34); PROTHROMBIN TIME 11.4 SECONDS (9.7-12.2)
[2019-02-25 10:32] LABS: IRON 35 ug/dL (37-170)
[2019-02-25 10:41] LABS: TOTAL IRON BINDING CAPACITY 316 ug/dL (250-450)
[2019-02-25 10:46] LABS: % IRON SATURATION 11 (20-55)
--- NOTE | 2019-02-25 13:52 | CP.PCM.PN ---
Subjective - Date & Time of Evaluation Date of Evaluation: 02/25/19 Time of Evaluation: 15:01 - Subjective Subjective: DR WOODSON SERVICE- IM Pt s/e at bedside, reports weakness overnight, reports no new bleeding or bruising noted, seen at bedside with [facility] surgery Dr Hines and Dr Woodson, Pt will have f/u cbc to monitor for worsening anemia, as per Dr Nichols repeat CT ab pelv w/ cont, pt agrees with plan, denies cp sob fc nv. Objective - Vital Signs/Intake and Output Vital Signs (last 24 hours): Temp Pulse Resp BP Pulse Ox 99 F 107 H 20 114/63 94 L 02/25/19 07:30 02/25/19 09:37 02/25/19 09:37 02/25/19 09:37 02/25/19 09:37 Intake and Output: 02/25/19 02/25/19 06:59 18:59 Intake Total 925 Balance 925 - Medications Medications: Current Medications Hydralazine HCl (Apresoline) 25 mg PO BID [facility] Last Admin: 02/25/19 09:38 Dose: 25 mg Sodium Chloride (Sodium Chloride 0.9%) 1,000 mls @ 75 mls/hr IV .[id number] [facility] Last Admin: 02/25/19 00:28 Dose: 75 mls/hr Metoprolol Succinate (Toprol Xl) 25 mg PO DAILY [facility] Last Admin: 02/25/19 09:38 Dose: 25 mg Pantoprazole Sodium (Protonix Ec Tab) 40 mg PO DAILY [facility] Last Admin: 02/25/19 09:38 Dose: 40 mg Tramadol HCl (Ultram) 50 mg PO TID PRN PRN Reason: Pain, severe (8-10) Last Admin: 02/25/19 09:38 Dose: 50 mg - Labs Labs: 02/25/19 07:34 02/25/19 07:34 PT 11.4 SECONDS (9.7-12.2) 02/25/19 10:00 INR 1.0 02/25/19 10:00 APTT 32.2 SECONDS (21-34) 02/25/19 10:00 - Additional Findings Additional findings: - Constitutional Appears: Non-toxic, No Acute Distress - Head Exam Head Exam: ATRAUMATIC, NORMAL INSPECTION, NORMOCEPHALIC - Eye Exam Eye Exam: EOMI, Normal appearance Pupil Exam: NORMAL ACCOMODATION, PERRL - ENT Exam ENT Exam: Mucous Membranes Moist, Normal Exam - Neck Exam Neck exam: Positive for: Normal Inspection - Respiratory Exam Respiratory Exam: Clear to Auscultation Bilateral, NORMAL BREATHING PATTERN - Cardiovascular Exam Cardiovascular Exam: REGULAR RHYTHM, +S1, +S2. absent: Tachycardia - GI/Abdominal Exam GI & Abdominal Exam: Normal Bowel Sounds, Soft, Tenderness (lower quadrants, epigastrium; no guarding, no ecchymosis). absent: Distended, Guarding, bruising - Extremities Exam Extremities exam: Positive for: normal inspection. Negative for: calf tenderness, pedal edema - Neurological Exam Neurological exam: Alert, Oriented x3 - Psychiatric Exam Psychiatric exam: Normal Affect, Normal Mood Assessment and Plan - Assessment and Plan (Free Text) Assessment: 73 year old female w/ pmhx of hemoperitoneum s/p liver bx, PBC, SLE, RA, Reynaud's, HTN, GERD admitted for evaluation of worsening abdominal pain Plan: Hemoperitoneum -f/u repeat CT A/P report -hgb downtrending, monitor 4pm H/H: transfuse if <7 repeat Hg 7.1 transfuse 2 u PRBCs 125 solumedrol x2 @4pm and 8pm benadryl 50 ivp @8pm -pain medication prn, tramodol -IVF, NS @75 -surgery consult, Dr. Hines -IR consult Dr Nichols HTN -continue home meds, hydralazine, metoprolol Constipation -bm today -mag-citrate SLE/RA/Raynaud's -hold home meds Ppx GI: Pepcid VTE: SCDs, AC contraindicated 2/2 hemorrhage CK PGY1 Discussed w/ Dr. Woodson
[2019-02-25 13:54] LABS: CK-MB 5.46 ng/mL (0.0-3.38); TROPONIN I 0.049 ng/mL (0.00-0.120)
[2019-02-25 15:31] LABS: HEMOGLOBIN 7.1 g/dL (11.0-16.0); MEAN CELL VOLUME 93.9 fL (81.0-99.0); MEAN CORPUSCULAR HEMOGLOBIN 31.3 pg (27.0-31.0); MEAN CORPUSCULAR HGB CONC 33.4 g/dL (33.0-37.0); MEAN PLATELET VOLUME 10.2 fL (7.2-11.7); RBC 2.27 Mil/uL (3.80-5.20); WHITE BLOOD COUNT 8.1 K/uL (4.8-10.8)
[2019-02-25] MEDS: MethylPREDNISolone 40 mg Vial IVP SCH ×2 (16:16→21:20)
--- NOTE | 2019-02-25 17:48 | CARD ---
APPROVED REPORT Date of service: 02/24/2019 EKG Measurement Heart [id number] <Conclusion> Sinus rhythm with short VA Nonspecific T wave abnormality Abnormal ECG
[2019-02-25] MEDS ORDERED: Tears Naturale Forte (15ml) OU PRN (19:26)
[2019-02-25] MEDS ORDERED: DiphenhydrAMINE 50 mg/ml Inj IVP ONE (20:00)
[2019-02-25] MEDS ORDERED: Iodixanol 320 MG/ML 100 ML BOTTLE IV ONE (22:08)
--- NOTE | 2019-02-26 07:52 | CP.PCM.PN ---
Subjective - Date & Time of Evaluation Date of Evaluation: 02/26/19 Time of Evaluation: 07:51 - Subjective Subjective: DR NICHOLSON SERVICE- IM Pt s/e at bedside reports tolerating transfusions last night, reports tolerating contrast, agrees to one more unit of FFP today. Denies CP SOB FC NV. Objective - Vital Signs/Intake and Output Vital Signs (last 24 hours): Temp Pulse Resp BP Pulse Ox 98.5 F 88 20 175/69 H 98 02/26/19 04:06 02/26/19 07:47 02/26/19 04:06 02/26/19 04:06 02/26/19 00:34 Intake and Output: 02/26/19 02/26/19 06:59 18:59 Intake Total 650 Balance 650 - Medications Medications: Current Medications Hydralazine HCl (Apresoline) 25 mg PO BID [facility] Last Admin: 02/25/19 17:08 Dose: Not Given Hypromellose (Tears Naturale Forte) 0.05 ml OU Q4H PRN PRN Reason: Dry eyes Losartan Potassium (Cozaar) 100 mg PO DAILY [facility] Metoprolol Succinate (Toprol Xl) 25 mg PO DAILY [facility] Last Admin: 02/25/19 09:38 Dose: 25 mg Pantoprazole Sodium (Protonix Ec Tab) 40 mg PO DAILY [facility] Last Admin: 02/25/19 09:38 Dose: 40 mg Tramadol HCl (Ultram) 50 mg PO TID PRN PRN Reason: Pain, severe (8-10) Last Admin: 02/26/19 00:18 Dose: 50 mg - Labs Labs: 02/25/19 15:27 02/25/19 07:34 PT 11.4 SECONDS (9.7-12.2) 02/25/19 10:00 INR 1.0 02/25/19 10:00 APTT 32.2 SECONDS (21-34) 02/25/19 10:00 - Additional Findings Additional findings: - Constitutional Appears: Non-toxic, No Acute Distress - Head Exam Head Exam: ATRAUMATIC, NORMAL INSPECTION, NORMOCEPHALIC - Eye Exam Eye Exam: EOMI, Normal appearance Pupil Exam: NORMAL ACCOMODATION, PERRL - ENT Exam ENT Exam: Mucous Membranes Moist, Normal Exam - Neck Exam Neck exam: Positive for: Normal Inspection - Respiratory Exam Respiratory Exam: Clear to Auscultation Bilateral, NORMAL BREATHING PATTERN - Cardiovascular Exam Cardiovascular Exam: REGULAR RHYTHM, +S1, +S2. absent: Tachycardia - GI/Abdominal Exam GI & Abdominal Exam: Normal Bowel Sounds, Soft, mild Tenderness (lower quadr ants, epigastrium; no guarding, no ecchymosis). absent: Distended, Guarding, bruising - Extremities Exam Extremities exam: Positive for: normal inspection. Negative for: calf tenderness, pedal edema - Neurological Exam Neurological exam: Alert, Oriented x3 - Psychiatric Exam Psychiatric exam: Normal Affect, Normal Mood Assessment and Plan - Assessment and Plan (Free Text) Assessment: 73 year old female w/ pmhx of hemoperitoneum s/p liver bx, PBC, SLE, RA, Reynaud's, HTN, GERD admitted for evaluation of worsening abdominal pain Plan: Hemoperitoneum -evidenced of hemorrhage expanding in repeat CT A/P w/ cont unable to determine if bleeding is arterial or venous per Dr Nichols and Dr Hines recommending venogram or arteriogram, will f/u recs for time for scan -repeat Hg -transfused 2 u PRBCs overnight, 1u FFP today @ 8am -pain medication prn, tramodol -MID Line to be placed today -IVF, NS @75 holding -VascSurgery consult, Dr. Hines -IR consult Dr Nichols -HepBilliary Sx Dr Awad consulted f/u recs HTN -continue home meds, hydralazine, metoprolol Constipation -bm yesterday -mag-citrate prn Iron Def Anemia -Iron Studies resulted -f/u with Dr Comer if contraindicated to give supplementation SLE/RA/Raynaud's -hold home meds Ppx GI: Pepcid VTE: SCDs, AC contraindicated 2/2 hemorrhage CK PGY1 Discussed w/ Dr. Nicholson
[2019-02-26 08:34] LABS: LYMPH # 0.4 K/uL (1.0-4.3); LYMPH % 5.5 % (20.0-40.0); MEAN CELL VOLUME 92.8 fL (81.0-99.0); MEAN CORPUSCULAR HEMOGLOBIN 30.9 pg (27.0-31.0); MEAN CORPUSCULAR HGB CONC 33.3 g/dL (33.0-37.0); MEAN PLATELET VOLUME 10.8 fL (7.2-11.7); MONO # 0.5 K/uL (0.0-0.8); MONO % 6.2 % (0.0-10.0); NEUT # 6.8 K/uL (1.8-7.0); NEUT % 88.3 % (50.0-75.0); NRBC % 0.1 % (0.0-2.0); PLATELET COUNT 128 K/uL (130-400); RED CELL DISTRIBUTION WIDTH 15.2 % (11.5-14.5); WHITE BLOOD COUNT 7.7 K/uL (4.8-10.8)
[2019-02-26 08:36] LABS: HEMOGLOBIN 11.1 g/dL (11.0-16.0)
[2019-02-26 08:49] LABS: ALB/GLOB RATIO 1.4 (1.0-2.1); ALT/SGPT 125 U/L (9-52); AST/SGOT 131 U/L (14-36); BLOOD UREA NITROGEN 14 mg/dL (7-17); CALCIUM 8.1 mg/dl (8.6-10.4); GFR NON-AFRICAN AMERICAN > 60
[2019-02-26] MEDS: Pantoprazole 40 mg EC Tab PO SCH (09:11)
[2019-02-26] MEDS: Metoprolol Succinate 25 mg XL Tab PO SCH (09:11)
[2019-02-26 09:59] LABS: LYMPHOCYTE 5 % (20-40); MONOCYTE 6 % (0-10); NEUTROPHIL 89 % (50-75); TOTAL CELLS COUNTED 100
[2019-02-26 10:00] LABS: ANISOCYTOSIS SLIGHT; PLATELET ESTIMATE SLIGHTLY DECREASED (NORMAL)
--- NOTE | 2019-02-26 12:00 | CT ---
Date of service: 02/25/2019 PROCEDURE: CT Abdomen and Pelvis with contrast HISTORY: Hemoperitoneum, Hepatic hematoma COMPARISON: CT abdomen pelvis with IV contrast performed 02/24/19 TECHNIQUE: Contrast dose: 100 mL Visipaque 320 IV Radiation dose: Total exam DLP = 915.28 mGy-cm. This CT exam was performed using one or more of the following dose reduction techniques: Automated exposure control, adjustment of the mA and/or kV according to patient size, and/or use of iterative reconstruction technique. FINDINGS: LOWER THORAX: Bibasilar atelectasis. No visible pleural effusion or pneumothorax. Small hiatal hernia. LIVER: Right hepatic lobe heterogeneous hematoma re-identified measuring approximately 6.4 x 5.7 cm (series 3, image 60). High attenuation heterogeneous perihepatic fluid extending into the pericolic gutter and pelvis also consistent with blood products. Pneumobilia. GALLBLADDER AND BILE DUCTS: Cholecystectomy clips. PANCREAS: Unremarkable. SPLEEN: Unremarkable. ADRENALS: Unremarkable. KIDNEYS AND URETERS: The kidneys enhance symmetrically. No hydronephrosis or obstructing calculus identified. Left upper pole renal cyst. VASCULATURE: No aortic aneurysm. Atherosclerotic calcifications present. BOWEL: Stomach is nondistended. Lack of oral contrast limits evaluation for bowel pathology. Bowel loops appear within normal limits of caliber without evidence of obstruction. APPENDIX: No secondary signs of acute appendicitis. PERITONEUM: No significant free fluid. No definite free air. LYMPH NODES: No bulky adenopathy identified. BLADDER: Unremarkable. REPRODUCTIVE: Uterus is absent consistent with hysterectomy. BONES: Degenerative changes. Scoliosis. OTHER FINDINGS: 2 small fat containing ventral hernias. IMPRESSION: Right hepatic lobe hematoma appears stable to minimally increased in size as compared to 02/24/19. Heterogeneous/high attenuation perihepatic fluid extending into the pelvis consistent with blood products. Pneumobilia. Cholecystectomy. Hysterectomy. Additional findings as above. Preliminary impression was provided by [facility].
--- NOTE | 2019-02-26 12:20 | PCM.IRP ---
History of Present Illness - History of Present Illness History of Present Illness: Mrs. Mari seen this am with family present. Pt eating breakfast and is comfortable. CT reviewed and there is slight increase in perihepatic hematoma and blood products in dependent pelvis. There is no active extravasation seen on CT. CT study is a mixed phase ( arterial and portovenous) Pt was transfused 2 units of pRB. She has responded appropriately. A/P: Given findings of CT scan, response to transfusion and clinical apearance, will hold on angioram. Source of bleed does not appear arterial from previous CT angiogram. Possibility of a venous bleed ( portal vein). A portal bleed would be difficult to treat and would require direct stick of portal vein via a transhepatic approach. If Pt Hbg continues to drop after conservative measures exhausted, will plan from arteriogram will embolization of segmental branches of right hepatic artery. This will be followed by a venogram and percutaneous access of portal vein. The above plan was discussed with the family. Objective - Vital Signs/Intake and Output Vital Signs (last 24 hours): Vital Signs - 24 hr 02/25/19 02/25/19 02/25/19 15:00 16:00 16:49 Temperature 98.6 F 98.3 F Pulse Rate 83 83 83 Respiratory 20 20 Rate Blood Pressure 160/61 H 158/60 H O2 Sat by Pulse 100 94 L Oximetry 02/25/19 02/25/19 02/25/19 16:59 17:14 17:29 Temperature 98.8 F 99.4 F 98.8 F Pulse Rate 101 H 83 90 Respiratory 20 20 20 Rate Blood Pressure 158/53 H 154/67 H 164/65 H O2 Sat by Pulse Oximetry 02/25/19 02/25/19 02/25/19 17:59 20:22 22:00 Temperature 99.0 F 98.8 F Pulse Rate 80 82 Respiratory 20 18 Rate Blood Pressure 165/64 H 173/71 H 187/67 H O2 Sat by Pulse Oximetry 02/25/19 02/25/19 02/26/19 22:49 23:19 00:34 Temperature 98.0 F 98.0 F Pulse Rate 76 76 Respiratory 20 20 Rate Blood Pressure 168/67 H 157/65 H 157/65 H O2 Sat by Pulse 97 98 Oximetry 02/26/19 02/26/19 02/26/19 00:40 00:55 01:10 Temperature 98.0 F 98.4 F 98.5 F Pulse Rate 76 80 89 Respiratory 20 20 20 Rate Blood Pressure 157/65 H 168/66 H 179/70 H O2 Sat by Pulse Oximetry 02/26/19 02/26/19 02/26/19 01:40 04:00 04:06 Temperature 98.7 F 98.5 F Pulse Rate 80 98 H 84 Respiratory 20 20 Rate Blood Pressure 175/65 H 175/69 H O2 Sat by Pulse Oximetry 02/26/19 02/26/19 07:00 07:47 Temperature 98.0 F Pulse Rate 74 88 Respiratory 20 Rate Blood Pressure 146/68 O2 Sat by Pulse 98 Oximetry Intake and Output (last 12 hours): Intake & Output 02/25/19 02/26/19 02/26/19 18:59 06:59 18:59 Intake Total 0 650 Balance 0 650 Intake: Blood Product 0 650 Red Blood Cells Cpd As1 325 Lr Unit [id number] Red Blood Cells Cpd As1 0 325 Lr Unit [id number] - Medications Medications: Current Medications Hydralazine HCl (Apresoline) 25 mg PO BID [facility] Last Admin: 02/26/19 09:11 Dose: 25 mg Hypromellose (Tears Naturale Forte) 0.05 ml OU Q4H PRN PRN Reason: Dry eyes Losartan Potassium (Cozaar) 100 mg PO DAILY [facility] Last Admin: 02/26/19 09:11 Dose: 100 mg Metoprolol Succinate (Toprol Xl) 25 mg PO DAILY [facility] Last Admin: 02/26/19 09:11 Dose: 25 mg Pantoprazole Sodium (Protonix Ec Tab) 40 mg PO DAILY [facility] Last Admin: 02/26/19 09:11 Dose: 40 mg Tramadol HCl (Ultram) 50 mg PO TID PRN PRN Reason: Pain, severe (8-10) Last Admin: 02/26/19 00:18 Dose: 50 mg - Labs Labs (last 24 hours): Laboratory Results - last 24 hr 02/25/19 02/25/19 02/25/19 10:00 13:22 15:27 WBC 8.1 RBC 2.27 L Hgb 7.1 L Hct 21.3 L MCV 93.9 MCH 31.3 H MCHC 33.4 RDW 16.0 H Plt Count 132 MPV 10.2 Neut % (Auto) Lymph % (Auto) [place] % (Auto) Eos % (Auto) Baso % (Auto) Neut # (Auto) Lymph # (Auto) [place] # (Auto) Eos # (Auto) Baso # (Auto) Neutrophils % (Manual) Lymphocytes % (Manual) Monocytes % (Manual) Platelet Estimate Anisocytosis (manual) Sodium Potassium Chloride Carbon Dioxide Anion Gap BUN Creatinine Est GFR ( Amer) Est GFR (Non-Af Amer) Random Glucose Calcium Total Bilirubin AST ALT Alkaline Phosphatase Total Creatine Kinase 102 CK-MB (Mass) 5.46 H Troponin I 0.0490 Total Protein Albumin Globulin Albumin/Globulin Ratio Blood Type O POSITIVE Antibody Screen Negative 02/26/19 02/26/19 08:19 08:19 WBC 7.7 RBC 3.60 L Hgb 11.1 D Hct 33.4 L MCV 92.8 MCH 30.9 MCHC 33.3 RDW 15.2 H Plt Count 128 L MPV 10.8 Neut % (Auto) 88.3 H Lymph % (Auto) 5.5 L [place] % (Auto) 6.2 Eos % (Auto) 0.0 Baso % (Auto) 0.0 Neut # (Auto) 6.8 Lymph # (Auto) 0.4 L [place] # (Auto) 0.5 Eos # (Auto) 0.0 Baso # (Auto) 0.0 Neutrophils % (Manual) 89 H Lymphocytes % (Manual) 5 L Monocytes % (Manual) 6 Platelet Estimate Slightly decreased L Anisocytosis (manual) Slight Sodium 137 Potassium 4.2 Chloride 104 Carbon Dioxide 25 Anion Gap 12 BUN 14 Creatinine 0.6 L Est GFR ( Amer) > 60 Est GFR (Non-Af Amer) > 60 Random Glucose 121 H D Calcium 8.1 L Total Bilirubin 1.2 AST 131 H D ALT 125 H Alkaline Phosphatase 322 H Total Creatine Kinase CK-MB (Mass) Troponin I Total Protein 6.9 Albumin 4.0 Globulin 2.9 Albumin/Globulin Ratio 1.4 Blood Type Antibody Screen
[2019-02-26] MEDS ORDERED: Ferric Sodium Gluconat Complex 62.5 mg/5 ml Vial IVPB ONE (14:00)
[2019-02-26 17:01] LABS: HEMOGLOBIN 9.8 g/dL (11.0-16.0); MEAN CELL VOLUME 91.1 fL (81.0-99.0); MEAN CORPUSCULAR HGB CONC 34.1 g/dL (33.0-37.0); MEAN PLATELET VOLUME 10.7 fL (7.2-11.7); RBC 3.17 Mil/uL (3.80-5.20); RED CELL DISTRIBUTION WIDTH 15.5 % (11.5-14.5); WHITE BLOOD COUNT 7.6 K/uL (4.8-10.8)
[2019-02-26] MEDS: Ferric Sodium Gluconat Complex 62.5 mg/5 ml Vial IVPB ONE ×2 (17:38→18:26)
--- NOTE | 2019-02-26 18:05 | CP.PCM.PCO ---
Assessment/Plan - Assessment/Plan Assessment: Repeat Hgb is 9.8 from 11.[address] Nichols is aware and has spoken to family regarding next steps. Family is to decide wether patient will go for portal venogram and embolization tomorrow. If patient decides to go for procedure- keep NPO past MN and transfuse PRBC for Hgb above 10. Will repeat CBC for 12am and await patient's decision.
[2019-02-26 23:43] VITALS: RESP 20
[2019-02-27 05:14] LABS: BASO % 0.2 % (0.0-2.0); EOS % 0.6 % (0.0-4.0); HEMOGLOBIN 12.6 g/dL (11.0-16.0); LYMPH % 13.8 % (20.0-40.0); MEAN CELL VOLUME 93.9 fL (81.0-99.0); MEAN CORPUSCULAR HEMOGLOBIN 31.3 pg (27.0-31.0); MEAN CORPUSCULAR HGB CONC 33.3 g/dL (33.0-37.0); MEAN PLATELET VOLUME 10.6 fL (7.2-11.7); MONO # 0.6 K/uL (0.0-0.8); MONO % 8.9 % (0.0-10.0); NEUT # 5.5 K/uL (1.8-7.0); NEUT % 76.5 % (50.0-75.0); NRBC % 0.2 % (0.0-2.0); RBC 4.03 Mil/uL (3.80-5.20); RED CELL DISTRIBUTION WIDTH 15.7 % (11.5-14.5); WHITE BLOOD COUNT 7.2 K/uL (4.8-10.8)
[2019-02-27 05:39] LABS: ALB/GLOB RATIO 1.4 (1.0-2.1); ALT/SGPT 91 U/L (9-52); AST/SGOT 98 U/L (14-36); BLOOD UREA NITROGEN 14 mg/dL (7-17); CALCIUM 8.3 mg/dl (8.6-10.4); GFR NON-AFRICAN AMERICAN > 60
[2019-02-27] MEDS ORDERED: Potassium Chloride 20 mEq ER Tab PO STA (06:07)
[2019-02-27 06:16] LABS: PARTIAL THROMBOPLASTIN TIME 37.5 SECONDS (21-34); PROTHROMBIN TIME 10.9 SECONDS (9.7-12.2)
[2019-02-27] MEDS ORDERED: MethylPREDNISolone 40 mg Vial IVP STA (06:59)
--- NOTE | 2019-02-27 07:13 | CP.PCM.PN ---
Subjective - Date & Time of Evaluation Date of Evaluation: 02/27/19 Time of Evaluation: 07:12 - Subjective Subjective: DR NICHOLSON SERVICE- IM Pt s/e at bedside, got transfused 1 more PRBC overnight, understands and agrees with plan for intervention w/ Dr Nichols, however Hg came up to 13.6 so possible follow up at a later time. Objective - Vital Signs/Intake and Output Vital Signs (last 24 hours): Temp Pulse Resp BP Pulse Ox 98.8 F 91 H 20 177/65 H 98 02/26/19 23:42 02/27/19 01:00 02/26/19 23:42 02/26/19 23:42 02/26/19 23:00 Intake and Output: 02/27/19 02/27/19 06:59 18:59 Intake Total 325 Balance 325 - Medications Medications: Current Medications Diphenhydramine HCl (Benadryl) 50 mg IVP ONCE ONE Stop: 02/27/19 12:01 Hydralazine HCl (Apresoline) 25 mg PO BID [facility] Last Admin: 02/26/19 17:37 Dose: 25 mg Hypromellose (Tears Naturale Forte) 0.05 ml OU Q4H PRN PRN Reason: Dry eyes Losartan Potassium (Cozaar) 100 mg PO DAILY [facility] Last Admin: 02/26/19 09:11 Dose: 100 mg Methylprednisolone (Solu-Medrol) 125 mg IVP Q4 [facility] Stop: 02/27/19 12:01 Metoprolol Succinate (Toprol Xl) 25 mg PO DAILY [facility] Last Admin: 02/26/19 09:11 Dose: 25 mg Pantoprazole Sodium (Protonix Ec Tab) 40 mg PO DAILY [facility] Last Admin: 02/26/19 09:11 Dose: 40 mg Tramadol HCl (Ultram) 50 mg PO TID PRN PRN Reason: Pain, severe (8-10) Last Admin: 02/26/19 00:18 Dose: 50 mg - Labs Labs: 02/27/19 05:13 02/27/19 05:13 PT 10.9 SECONDS (9.7-12.2) 02/27/19 05:13 INR 1.0 02/27/19 05:13 APTT 37.5 SECONDS (21-34) H D 02/27/19 05:13 - Additional Findings Additional findings: - Constitutional Appears: Non-toxic, No Acute Distress - Head Exam Head Exam: ATRAUMATIC, NORMAL INSPECTION, NORMOCEPHALIC - Eye Exam Eye Exam: EOMI, Normal appearance Pupil Exam: NORMAL ACCOMODATION, PERRL - ENT Exam ENT Exam: Mucous Membranes Moist, Normal Exam - Neck Exam Neck exam: Positive for: Normal Inspection - Respiratory Exam Respiratory Exam: Clear to Auscultation Bilateral, NORMAL BREATHING PATTERN - Cardiovascular Exam Cardiovascular Exam: REGULAR RHYTHM, +S1, +S2. absent: Tachycardia - GI/Abdominal Exam GI & Abdominal Exam: Normal Bowel Sounds, Soft, mild Tenderness (lower quadrants, epigastrium; no guarding, no ecchymosis). absent: Distended, Guarding, bruising - Extremities Exam Extremities exam: Positive for: normal inspection. Negative for: calf tenderness, pedal edema - Neurological Exam Neurological exam: Alert, Oriented x3 - Psychiatric Exam Psychiatric exam: Normal Affect, Normal Mood Assessment and Plan - Assessment and Plan (Free Text) Assessment: 73 year old female w/ pmhx of hemoperitoneum s/p liver bx, PBC, SLE, RA, R eynaud's, HTN, GERD admitted for evaluation of worsening abdominal pain Plan: Hemoperitoneum -evidenced of hemorrhage expanding in repeat CT A/P w/ cont unable to determine if bleeding is arterial or venous per Dr Nichols and Dr Hines recommending venogram or arteriogram -repeat Hg -transfused 2 u PRBCs 02/25, 1u FFP 02/26, 1u PRBCs overnight -pain medication prn, tramodol -MID Line to be placed today -IVF, NS @75 holding -VascSurgery consult, Dr. Hines -IR consult Dr Nichols: Venogram on hold as of now, Hg came up to 13.2 -HepBilliary Sx Dr Awad consulted f/u recs recommending Arteriogram with Delayed outflow HTN -continue home meds, hydralazine, metoprolol Constipation -bm yesterday -mag-citrate prn Iron Def Anemia -Iron Studies resulted -f/u with Dr Comer if contraindicated to give supplementation SLE/RA/Raynaud's -hold home meds -spoke with Dr Comer, may replete Iron as necessary, will follow outpt Ppx GI: Pepcid VTE: SCDs, AC contraindicated 2/2 hemorrhage CK PGY1 Discussed w/ Dr. Nicholson
[2019-02-27] MEDS: Pantoprazole 40 mg EC Tab PO SCH (09:59)
[2019-02-27] MEDS: Metoprolol Succinate 25 mg XL Tab PO SCH (10:00)
[2019-02-27 10:53] LABS: HEMOGLOBIN 13.2 g/dL (11.0-16.0); MEAN CORPUSCULAR HEMOGLOBIN 31.5 pg (27.0-31.0); MEAN CORPUSCULAR HGB CONC 34.3 g/dL (33.0-37.0); MEAN PLATELET VOLUME 10.3 fL (7.2-11.7); RBC 4.18 Mil/uL (3.80-5.20); RED CELL DISTRIBUTION WIDTH 15.2 % (11.5-14.5); WHITE BLOOD COUNT 6.9 K/uL (4.8-10.8)
[2019-02-27 11:06] LABS: MEAN CELL VOLUME 91.7 fL (81.0-99.0)
--- NOTE | 2019-02-27 11:30 | CP.PCM.PN ---
Subjective - Date & Time of Evaluation Date of Evaluation: 02/27/19 Time of Evaluation: 11:30 Objective - Vital Signs/Intake and Output Vital Signs (last 24 hours): Temp Pulse Resp BP Pulse Ox 98.4 F 81 20 177/69 H 100 02/27/19 07:00 02/27/19 07:13 02/27/19 07:00 02/27/19 07:00 02/27/19 11:10 Intake and Output: 02/27/19 02/27/19 06:59 18:59 Intake Total 325 Balance 325 - Medications Medications: Current Medications Diphenhydramine HCl (Benadryl) 50 mg IVP ONCE ONE Stop: 02/27/19 12:01 Hydralazine HCl (Apresoline) 25 mg PO BID [facility] Last Admin: 02/27/19 09:59 Dose: 25 mg Hypromellose (Tears Naturale Forte) 0.05 ml OU Q4H PRN PRN Reason: Dry eyes Losartan Potassium (Cozaar) 100 mg PO DAILY [facility] Last Admin: 02/27/19 09:59 Dose: 100 mg Methylprednisolone (Solu-Medrol) 125 mg IVP Q4 [facility] Last Admin: 02/27/19 08:14 Dose: 125 mg Metoprolol Succinate (Toprol Xl) 25 mg PO DAILY [facility] Last Admin: 02/27/19 10:00 Dose: 25 mg Pantoprazole Sodium (Protonix Ec Tab) 40 mg PO DAILY [facility] Last Admin: 02/27/19 09:59 Dose: 40 mg Tramadol HCl (Ultram) 50 mg PO TID PRN PRN Reason: Pain, severe (8-10) Last Admin: 02/26/19 00:18 Dose: 50 mg - Labs Labs: 02/27/19 10:50 02/27/19 05:13 PT 10.9 SECONDS (9.7-12.2) 02/27/19 05:13 INR 1.0 02/27/19 05:13 APTT 37.5 SECONDS (21-34) H D 02/27/19 05:13
--- NOTE | 2019-02-27 11:42 | PCM.IRP ---
History of Present Illness - History of Present Illness History of Present Illness: Mrs. Mari scheduled for hepatic angiogram and portal venogram. Repeat H/H stable and in normal range. The scheduled procedure will be placed on hold with no evidence of further bleeding. If H/H stable tomorrow, Pt may be discharged. Plan discussed with Pt and her son. Objective - Vital Signs/Intake and Output Vital Signs (last 24 hours): Vital Signs - 24 hr 02/26/19 02/26/19 02/26/19 15:25 15:40 20:29 Temperature 98 F 98.5 F Pulse Rate 70 69 78 Respiratory 18 20 Rate Blood Pressure 156/61 H 168/64 H O2 Sat by Pulse 97 Oximetry 02/26/19 02/26/19 02/26/19 20:44 20:59 21:14 Temperature 98.9 F 98.8 F 98.5 F Pulse Rate 78 76 78 Respiratory 20 20 20 Rate Blood Pressure 172/63 H 154/67 H 161/62 H O2 Sat by Pulse Oximetry 02/26/19 02/26/19 02/26/19 21:44 23:00 23:42 Temperature 99.1 F 98.8 F 98.8 F Pulse Rate 82 93 H 93 H Respiratory 18 20 20 Rate Blood Pressure 161/68 H 177/65 H 177/65 H O2 Sat by Pulse 98 Oximetry 02/27/19 02/27/19 02/27/19 01:00 07:00 07:13 Temperature 98.4 F Pulse Rate 91 H 89 81 Respiratory 20 Rate Blood Pressure 177/69 H O2 Sat by Pulse 98 Oximetry 02/27/19 11:10 Temperature Pulse Rate Respiratory Rate Blood Pressure O2 Sat by Pulse 100 Oximetry Intake and Output (last 12 hours): Intake & Output 02/26/19 02/27/19 02/27/19 18:59 06:59 18:59 Intake Total 325 Balance 325 Intake: Blood Product 325 Red Blood Cells Cpd As1 325 Lr Unit [id number] - Medications Medications: Current Medications Diphenhydramine HCl (Benadryl) 50 mg IVP ONCE ONE Stop: 02/27/19 12:01 Hydralazine HCl (Apresoline) 25 mg PO BID [facility] Last Admin: 02/27/19 09:59 Dose: 25 mg Hypromellose (Tears Naturale Forte) 0.05 ml OU Q4H PRN PRN Reason: Dry eyes Losartan Potassium (Cozaar) 100 mg PO DAILY [facility] Last Admin: 02/27/19 09:59 Dose: 100 mg Methylprednisolone (Solu-Medrol) 125 mg IVP Q4 [facility] Last Admin: 02/27/19 08:14 Dose: 125 mg Metoprolol Succinate (Toprol Xl) 25 mg PO DAILY [facility] Last Admin: 02/27/19 10:00 Dose: 25 mg Pantoprazole Sodium (Protonix Ec Tab) 40 mg PO DAILY [facility] Last Admin: 02/27/19 09:59 Dose: 40 mg Tramadol HCl (Ultram) 50 mg PO TID PRN PRN Reason: Pain, severe (8-10) Last Admin: 02/26/19 00:18 Dose: 50 mg - Labs Labs (last 24 hours): Laboratory Results - last 24 hr 02/25/19 02/26/19 02/27/19 10:00 16:55 05:13 WBC 7.6 7.2 RBC 3.17 L 4.03 Hgb 9.8 L 12.6 D Hct 28.9 L 37.9 MCV 91.1 93.9 D MCH 31.0 31.3 H MCHC 34.1 33.3 RDW 15.5 H 15.7 H Plt Count 112 L 112 L MPV 10.7 10.6 Neut % (Auto) 76.5 H Lymph % (Auto) 13.8 L [place] % (Auto) 8.9 Eos % (Auto) 0.6 Baso % (Auto) 0.2 Neut # (Auto) 5.5 Lymph # (Auto) 1.0 [place] # (Auto) 0.6 Eos # (Auto) 0.0 Baso # (Auto) 0.0 PT INR APTT Sodium Potassium Chloride Carbon Dioxide Anion Gap BUN Creatinine Est GFR ( Amer) Est GFR (Non-Af Amer) Random Glucose Calcium Phosphorus Magnesium Total Bilirubin AST ALT Alkaline Phosphatase Total Protein Albumin Globulin Albumin/Globulin Ratio Blood Type O POSITIVE Antibody Screen Negative 02/27/19 02/27/19 02/27/19 05:13 05:13 10:50 WBC 6.9 RBC 4.18 Hgb 13.2 Hct 38.3 MCV 91.7 D MCH 31.5 H MCHC 34.3 RDW 15.2 H Plt Count 126 L MPV 10.3 Neut % (Auto) Lymph % (Auto) [place] % (Auto) Eos % (Auto) Baso % (Auto) Neut # (Auto) Lymph # (Auto) [place] # (Auto) Eos # (Auto) Baso # (Auto) PT 10.9 INR 1.0 APTT 37.5 H D Sodium 133 Potassium 3.4 L Chloride 102 Carbon Dioxide 24 Anion Gap 10 BUN 14 Creatinine 0.6 L Est GFR ( Amer) > 60 Est GFR (Non-Af Amer) > 60 Random Glucose 100 Calcium 8.3 L Phosphorus 1.5 L Magnesium 2.0 Total Bilirubin 1.7 H AST 98 H D ALT 91 H D Alkaline Phosphatase 306 H Total Protein 6.9 Albumin 4.0 Globulin 2.9 Albumin/Globulin Ratio 1.4 Blood Type Antibody Screen
[2019-02-27] MEDS ORDERED: DiphenhydrAMINE 50 mg/ml Inj IVP ONE (12:00)
--- NOTE | 2019-02-27 13:26 | CARD ---
APPROVED REPORT Date of service: 02/25/2019 EKG Measurement Heart [id number] <Conclusion> Sinus rhythm with short MO Nonspecific T wave abnormality Borderline
[2019-02-28 07:56] LABS: BASO % 0.3 % (0.0-2.0); EOS % 0.1 % (0.0-4.0); HEMOGLOBIN 13.2 g/dL (11.0-16.0); LYMPH # 1.1 K/uL (1.0-4.3); LYMPH % 16.1 % (20.0-40.0); MEAN CELL VOLUME 92.3 fL (81.0-99.0); MEAN CORPUSCULAR HEMOGLOBIN 31.5 pg (27.0-31.0); MEAN CORPUSCULAR HGB CONC 34.1 g/dL (33.0-37.0); MEAN PLATELET VOLUME 10.9 fL (7.2-11.7); MONO # 0.7 K/uL (0.0-0.8); MONO % 9.6 % (0.0-10.0); NEUT # 5.1 K/uL (1.8-7.0); NEUT % 73.9 % (50.0-75.0); NRBC % 0.1 % (0.0-2.0); RBC 4.19 Mil/uL (3.80-5.20); RED CELL DISTRIBUTION WIDTH 15.2 % (11.5-14.5); WHITE BLOOD COUNT 6.8 K/uL (4.8-10.8)
[2019-02-28 07:57] VITALS: TEMP 97.9
[2019-02-28 08:21] LABS: ALB/GLOB RATIO 1.3 (1.0-2.1); ALBUMIN 3.8 g/dL (3.5-5.0); ALT/SGPT 72 U/L (9-52); AST/SGOT 73 U/L (14-36); BLOOD UREA NITROGEN 18 mg/dL (7-17); CALCIUM 8.7 mg/dl (8.6-10.4); GFR NON-AFRICAN AMERICAN > 60
[2019-02-28] MEDS: Pantoprazole 40 mg EC Tab PO SCH (09:04)
[2019-02-28] MEDS: Metoprolol Succinate 25 mg XL Tab PO SCH (09:05)
[2019-02-28 09:06] VITALS: BP 109/63; PULSE 84; O2SAT 98
--- NOTE | 2019-02-28 09:27 | CP.PCM.DIS ---
Provider - Provider Date of Admission: 02/27/19 16:13 Attending physician: Jh Woodson Jr, MD Consults: 02/25/19 00:16 General Surgery Consult Routine Comment: Consulting Provider: Donald Hines Jr. Consulting Physician: Donald Hines Jr. Reason for Consult: hemoperitoneum s/p liver bx 02/25/19 15:06 Radiology Consult Routine Comment: Consulting Provider: Lance Nichols Consulting Physician: Lance Nichols Reason for Consult: hemoperitoneum, hepatic hematoma 02/26/19 12:02 Physician Consult Routine Comment: Consulting Provider: Phil Awad Consulting Physician: Phil Awad Reason for Consult: hematoma and hemorrhage of liver, hx of liver bx 02/27/19 17:19 Pastoral Care Referral Routine Comment: Physician Instructions: Reason For Exam: denominational Time Spent in preparation of Discharge (in minutes): 45 Diagnosis - Discharge Diagnosis (1) History of liver biopsy Status: Chronic (2) Hypertension Status: Chronic (3) Liver hemorrhage Status: Suspected Hospital Course - Lab Results Lab Results: Most Recent Lab Values WBC 6.8 K/uL (4.8-10.8) 02/28/19 07:44 RBC 4.19 Mil/uL (3.80-5.20) 02/28/19 07:44 Hgb 13.2 g/dL (11.0-16.0) 02/28/19 07:44 Hct 38.7 % (34.0-47.0) 02/28/19 07:44 MCV 92.3 fL (81.0-99.0) 02/28/19 07:44 MCH 31.5 pg (27.0-31.0) H 02/28/19 07:44 MCHC 34.1 g/dL (33.0-37.0) 02/28/19 07:44 RDW 15.2 % (11.5-14.5) H 02/28/19 07:44 Plt Count 130 K/uL (130-400) 02/28/19 07:44 MPV 10.9 fL (7.2-11.7) 02/28/19 07:44 Neut % (Auto) 73.9 % (50.0-75.0) 02/28/19 07:44 Lymph % (Auto) 16.1 % (20.0-40.0) L 02/28/19 07:44 [place] % (Auto) 9.6 % (0.0-10.0) 02/28/19 07:44 Eos % (Auto) 0.1 % (0.0-4.0) 02/28/19 07:44 Baso % (Auto) 0.3 % (0.0-2.0) 02/28/19 07:44 Neut # (Auto) 5.1 K/uL (1.8-7.0) 02/28/19 07:44 Lymph # (Auto) 1.1 K/uL (1.0-4.3) 02/28/19 07:44 [place] # (Auto) 0.7 K/uL (0.0-0.8) 02/28/19 07:44 Eos # (Auto) 0.0 K/uL (0.0-0.7) 02/28/19 07:44 Baso # (Auto) 0.0 K/uL (0.0-0.2) 02/28/19 07:44 Neutrophils % (Manual) 89 % (50-75) H 02/26/19 08:19 Band Neutrophils % 1 % (0-2) 02/25/19 07:34 Lymphocytes % (Manual) 5 % (20-40) L 02/26/19 08:19 Monocytes % (Manual) 6 % (0-10) 02/26/19 08:19 Platelet Estimate Slightly decreased (NORMAL) L 02/26/19 08:19 Hypochromasia (manual) Slight 02/25/19 07:34 Anisocytosis (manual) Slight 02/26/19 08:19 PT 10.9 SECONDS (9.7-12.2) 02/27/19 05:13 INR 1.0 02/27/19 05:13 APTT 37.5 SECONDS (21-34) H D 02/27/19 05:13 Sodium 134 mmol/L (132-148) 02/28/19 07:44 Potassium 3.4 mmol/L (3.6-5.2) L 02/28/19 07:44 Chloride 99 mmol/L (98-107) 02/28/19 07:44 Carbon Dioxide 28 mmol/L (22-30) 02/28/19 07:44 Anion Gap 11 (10-20) 02/28/19 07:44 BUN 18 mg/dL (7-17) H 02/28/19 07:44 Creatinine 0.7 mg/dL (0.7-1.2) 02/28/19 07:44 Est GFR ( Amer) > 60 02/28/19 07:44 Est GFR (Non-Af Amer) > 60 02/28/19 07:44 POC Glucose (mg/dL) 120 mg/dL (65-110) H 02/25/19 17:00 Random Glucose 83 mg/dL (65-105) 02/28/19 07:44 Calcium 8.7 mg/dl (8.6-10.4) 02/28/19 07:44 Phosphorus 2.3 mg/dL (2.5-4.5) L 02/28/19 07:44 Magnesium 2.2 mg/dL (1.6-2.3) 02/28/19 07:44 Iron 35 ug/dL (37-170) L 02/25/19 10:00 TIBC 316 ug/dL (250-450) 02/25/19 10:00 % Saturation 11 (20-55) L 02/25/19 10:00 Total Bilirubin 1.6 mg/dL (0.2-1.3) H 02/28/19 07:44 AST 73 U/L (14-36) H D 02/28/19 07:44 ALT 72 U/L (9-52) H D 02/28/19 07:44 Alkaline Phosphatase 265 U/L (38-126) H 02/28/19 07:44 Total Creatine Kinase 102 U/L (30-135) 02/25/19 13:22 CK-MB (Mass) 5.46 ng/mL (0.0-3.38) H 02/25/19 13:22 Troponin I 0.0490 ng/mL (0.00-0.120) 02/25/19 13:22 Total Protein 6.8 g/dL (6.3-8.3) 02/28/19 07:44 Albumin 3.8 g/dL (3.5-5.0) 02/28/19 07:44 Globulin 3.0 gm/dL (2.2-3.9) 02/28/19 07:44 Albumin/Globulin Ratio 1.3 (1.0-2.1) 02/28/19 07:44 Lipase 231 U/L (23-300) 02/24/19 20:21 Urine Color Radha (YELLOW) 02/25/19 03:56 Urine Clarity Hazy (Clear) 02/25/19 03:56 Urine pH 6.0 (5.0-8.0) 02/25/19 03:56 Ur Specific [place] > 1.060 (1.003-1.030) H 02/25/19 03:56 Urine Protein Negative mg/dL (NEGATIVE) 02/25/19 03:56 Urine Glucose (UA) Normal mg/dL (Normal) 02/25/19 03:56 Urine Ketones Negative mg/dL (NEGATIVE) 02/25/19 03:56 Urine Blood Negative (NEGATIVE) 02/25/19 03:56 Urine Nitrate Negative (NEGATIVE) 02/25/19 03:56 Urine Bilirubin Negative (NEGATIVE) 02/25/19 03:56 Urine Urobilinogen Normal mg/dL (0.2-1.0) 02/25/19 03:56 Ur Leukocyte Esterase Neg [place]/uL (Negative) 02/25/19 03:56 Urine WBC (Auto) 1 /hpf (0-5) 02/25/19 03:56 Urine RBC (Auto) 1 /hpf (0-3) 02/25/19 03:56 Ur Squamous Epith Cells < 1 /hpf (0-5) 02/25/19 03:56 Blood Type O POSITIVE 02/25/19 10:00 Antibody Screen Negative 02/25/19 10:00 - Hospital Course Hospital Course: Patient is a 73 year old female with pmhx of SLE, RA, Reynaud's, HTN, GERD who was recently admitted for hepatic hemorrhage s/p liver bx, who presents to the ED with complaints of worsening abdominal pain since this evening. Patient was discharged on 02/19 after she sustained a hepatic hemorrhage s/p liver bx. Patient was discharged with contained hemoperitoneum and stable hgb s/p 1U PRBC. She reports intermittent abdominal pain s/p discharge, however today experienced more severe lower/epigastric abdominal pain only temporarily relieved with Tylenol. Patient reports chronic constipation requiring home laxative use with minimal improvement. Denies headache, dizziness, chest pain, SOB, palpitations, nausea. PMD: Dr. Woodson PMHx: SLE, RA, Reynaud's, HTN, GERD PSHx: appendectomy, cholecystectomy, c-sect x2, hysterectomy Meds: methotrexate, plaquenil, metoprolol, HCTZ, nexium Allergies: ASA, iodine, codeine, PCN, lactose SocHx: former smoker, denies alcohol/tobacco use COURSE Pt was found to have anemia (acutely dropped to low of 7.1) and worsening blood collection hemoperitoneum/hepatic hemorrhage on CT, f/u CT showed appearance of venous bleed. IR Dr Nichols and Vasc Sx Dr Hines consulted. We transfused total of 3 units and 1 u FFP and 2u Ferrlicit. Hg came up to 13 and remained stable for 24hrs with 3 f/u CBCs. Pt asymtomatic, Venogram was held off at this time as per IR. No mor intervention recommended at this time. Pt stable for dc home and is to seek medical attention immediatelyif she is with any acute symptoms of abd pain, weakness, fatigue, bruising or any other acute new onset pains/ deficits. Discharge Exam - Head Exam Head Exam: ATRAUMATIC, NORMAL INSPECTION, NORMOCEPHALIC - Additional Findings Additional findings: - Constitutional Appears: Non-toxic, No Acute Distress - Head Exam Head Exam: ATRAUMATIC, NORMAL INSPECTION, NORMOCEPHALIC - Eye Exam Eye Exam: EOMI, Normal appearance Pupil Exam: NORMAL ACCOMODATION, PERRL - ENT Exam ENT Exam: Mucous Membranes Moist, Normal Exam - Neck Exam Neck exam: Positive for: Normal Inspection - Respiratory Exam Respiratory Exam: Clear to Auscultation Bilateral, NORMAL BREATHING PATTERN - Cardiovascular Exam Cardiovascular Exam: REGULAR RHYTHM, +S1, +S2. absent: Tachycardia - GI/Abdominal Exam GI & Abdominal Exam: Normal Bowel Sounds, Soft, mild Tenderness (lower quadrants, epigastrium; no guarding, no ecchymosis). absent: Distended, Guarding, bruising - Extremities Exam Extremities exam: Positive for: normal inspection. Negative for: calf tenderness, pedal edema - Neurological Exam Neurological exam: Alert, Oriented x3 - Psychiatric Exam Psychiatric exam: Normal Affect, Normal Mood Discharge Plan - Discharge Medications Prescriptions: hydrALAZINE [Apresoline] 25 mg PO BID #60 tab Hydroxychloroquine Sulfate [Plaquenil] 200 mg PO DAILY #30 tablet Losartan Potassium 100 mg PO DAILY #30 tablet Metoprolol Succinate [Toprol Xl] 25 mg PO DAILY #30 tab.er.24h Pantoprazole Sodium [Protonix] 40 mg PO DAILY #30 tablet.dr - Follow Up Plan Condition: GOOD Disposition: HOME/ ROUTINE Instructions: Hypertension (DC), Hypertension (GEN)
== END 2019-02-28 12:09 | disposition home or self-care (01) | DRG 919 ==
LOC: C.ER 19:50 → C.9E 22:44 → C.6T 23:10 → OBSVTOIN 02-27 16:13
PROVIDERS: ADMIT Internal Medicine; ATTEND Internal Medicine
PROC: 30233K1 Transfusion of Nonautologous Frozen Plasma into Peripheral Vein, Percutaneous Approach (ICD-10-PCS; principal; 2019-02-27)
PROC: 05HY33Z Insertion of Infusion Device into Upper Vein, Percutaneous Approach (ICD-10-PCS; 2019-02-27)
PROC: 30233N1 Transfusion of Nonautologous Red Blood Cells into Peripheral Vein, Percutaneous Approach (ICD-10-PCS; 2019-02-27)
DX: K91.870 Postprocedural hematoma of a digestive system organ or structure following a digestive system procedure (principal); K66.1 Hemoperitoneum; K59.09 Other constipation; K76.89 Other specified diseases of liver; K74.3 Primary biliary cirrhosis; M06.9 Rheumatoid arthritis, unspecified; M32.9 Systemic lupus erythematosus, unspecified; D50.9 Iron deficiency anemia, unspecified; I10 Essential (primary) hypertension; K21.9 Gastro-esophageal reflux disease without esophagitis; K29.80 Duodenitis without bleeding; M81.0 Age-related osteoporosis without current pathological fracture; I73.00 Raynaud's syndrome without gangrene; Y84.8 Other medical procedures as the cause of abnormal reaction of the patient, or of later complication, without mention of misadventure at the time of the procedure